=== PATIENT | female | born 1945 | race Caucasian/White ===

== ENCOUNTER 2018-02-27 12:09 | Emergency (ER) | payer MEDICARE, MEDICAID ==
[2018-02-27] MEDS: methylPREDNISolone Sodium Succinate 125 MG/2 ML SDV IVPUSH ONE (12:53)
[2018-02-27] MEDS: Furosemide 40 MG/4 ML VIAL IVPUSH ONE (12:53)
[2018-02-27] MEDS: Albuterol/Ipratropium 3.0-0.5 MG/3 ML Neb Soln NEB ONE (12:53)
[2018-02-27] MEDS: Sodium Chloride 0.9% 10 ML Syringe FLUSH PRN (12:53)
[2018-02-27 13:05] LABS: CHLORIDE,CL 106 mmol/L (98-107); SODIUM,NA 142 mmol/L (136-145)
--- NOTE | 2018-02-27 14:06 | EDM.PDOC ---
ED HPI GENERAL MEDICAL PROBLEM - General Chief Complaint: Respiratory Problem Stated Complaint: shortness of breath Time Seen by Provider: 02/27/18 12:21 Source of Information: Reports: Patient, Family History Limitations: Reports: No Limitations - History of Present Illness INITIAL COMMENTS - FREE TEXT/NARRATIVE: Patient comes complaining of COPD exacerbation. Would like to get a steroid shot and go home. Has had similar symptoms multiple times in the past and they usually resolve if given a steroid. Has had increasing SOB for several days. Noted increased swelling of lower legs earlier this week but this improved. No fevers/chills or recent colds/infections. Has history of chronic pain, including neck pain. They neck pain is a bit worse today. Denies chest pain. Has some radiated pain down right arm. This is not new. Multiple chronic medical conditions/poor sleep. No med changes reported. O2 dependent. Quit smoking a year ago. - Related Data Allergies Allergy/AdvReac Type Severity Reaction Status Date / Time gabapentin [From Neurontin] Allergy Rash Verified 10/23/16 15:47 Penicillins Allergy unknown Verified 04/08/15 16:37 Home Meds: Home Meds Albuterol/Ipratropium [DuoNeb 3.0-0.5 MG/3 ML] 3 ml INH Q4H PRN 04/08/15 [ History] Enalapril Maleate 20 mg PO DAILY 04/08/15 [History] LORazepam [Ativan] 1 mg PO BID PRN 04/08/15 [History] Naproxen [Naprosyn] 1 tab PO BID PRN 04/08/15 [History] Omeprazole [Prilosec] 20 mg PO DAILY 04/08/15 [History] Zinc Acetate [Galzin] 1 tab PO DAILY 04/08/15 [History] buPROPion [Wellbutrin XL] 150 mg PO DAILY #30 tab.er 04/12/15 [Rx] Escitalopram [Lexapro] 20 mg PO DAILY 10/23/16 [History] QUEtiapine [SEROquel] 50 mg PO BEDTIME 10/23/16 [History] Acetaminophen/HYDROcodone [[place] 325-5 MG] 1 tab PO Q6H PRN #0 tablet 10/27/16 [ Rx] Albuterol [IJD: Albuterol HFA] 0 gm INH Q4H PRN #2 inhaler 10/27/16 [Rx] Ascorbic Acid [Vitamin C] 500 mg PO DAILY tablet 10/27/16 [Rx] Mometasone/Formoterol [[place] 200-5 MCG] 2 puff IH BID 90 Days inhaler [Rx] Multivitamins [Tab-A-Kianna] 1 tab PO DAILY tablet 10/27/16 [Rx] predniSONE [Prednisone] 10 mg PO DAILY #45 tablet 10/27/16 [Rx] Hydrocodone/Acetaminophen [Hydrocodon-Acetaminophen 5-325] 1 each PO Q4HR PRN [History] Nitrofurantoin Monohyd/M-Cryst [Macrobid 100 mg Capsule] 100 mg PO BID #14 capsule 02/27/18 [Rx] atorvaSTATin [Lipitor] 20 mg PO DAILY 02/27/18 [History] Past Medical History HEENT History: Reports: Allergic Rhinitis Cardiovascular History: Reports: High Cholesterol, Hypertension Other Cardiovascular History: tachycardia Respiratory History: Reports: COPD, Other (See Below) Other Respiratory History: acute and chronic respiratory failure Gastrointestinal History: Reports: GERD Musculoskeletal History: Reports: Other (See Below) Other Musculoskeletal History: spondylothesis Psychiatric History: Reports: Depression Endocrine/Metabolic History: Reports: Obesity/BMI 30+ - Past Surgical History Neurological Surgical History: Reports: Spinal Fusion Musculoskeletal Surgical History: Reports: Other (See Below) Social & Family History - Tobacco Use Smoking Status *Q: Current Every Day Smoker Years of Tobacco use: 46 Used Tobacco, but Quit: No Second Hand Smoke Exposure: Yes - Recreational Drug Use Recreational Drug Use: No ED ROS GENERAL - Review of Systems Review Of Systems: See Below Constitutional: Denies: Fever, Chills, Malaise, Weakness, Night Sweats, Diaphoresis, Decreased Appetite, Weight Loss HEENT: Reports: No Symptoms Respiratory: Reports: Shortness of Breath, Wheezing. Denies: Pleuritic Chest Pain, Cough, Sputum, Hemoptysis Cardiovascular: Reports: Edema. Denies: Chest Pain, Lightheadedness, Palpitations GI/Abdominal: Reports: No Symptoms : Reports: No Symptoms Musculoskeletal: Reports: Neck Pain (chronic), Arm Pain Skin: Reports: Bruising Neurological: Reports: No Symptoms Psychiatric: Reports: No Symptoms Hematologic/Lymphatic: Reports: Easy Bruising ED EXAM, GENERAL - Physical Exam Exam: See Below Exam Limited By: No Limitations General Appearance: Alert, WD/WN, No Apparent Distress (audible wheezing), Obese Eye Exam: Bilateral Eye: EOMI, PERRL Ears: Normal External Exam Nose: No: Nasal Deformity, Nasal Swelling, Nasal Drainage Throat/Mouth: Normal Inspection, Normal Lips, Normal Voice, No Airway Compromise Head: Atraumatic, Normocephalic Neck: Normal Inspection, Supple, Non-Tender, Full Range of Motion Respiratory/Chest: No Respiratory Distress, No Accessory Muscle Use, Decreased Breath Sounds (bilateral), Rhonchi (scattered), Wheezing (throughout). No: Crackles, Rales, Stridor, Pleural Rub, Accessory Muscle Use, Retractions, Splinting Cardiovascular: Regular Rate, Rhythm, No Murmur Peripheral Pulses: 2+: Radial (L), Radial (R), Dorsalis Pedis (L), Dorsalis Pedis (R) GI/Abdominal: Soft, Non-Tender (Female) Exam: Deferred Rectal (Female) Exam: Deferred Back Exam: No: CVA Tenderness (L), CVA Tenderness (R), Muscle Spasm, Paraspinal Tenderness, Vertebral Tenderness Extremities: Normal Range of Motion, Non-Tender, Normal Capillary Refill, Pedal Edema (mild, bilateral). No: Pallor, Redness Neurological: Alert, Oriented, Normal Cognition, Normal Reflexes, No Motor/ Sensory Deficits, Other (ambulates well) Psychiatric: Normal Affect, Normal Mood Skin Exam: Warm, Intact, Normal Color EKG INTERPRETATION EKG Date: 02/27/18 Time: 12:16 Rhythm: Other (Sinus tach) Rate (Beats/Min): 103 [place]: Normal P-Wave: Present QRS: Normal ST-T: Normal QT: Normal TX/PQ Interval: TX decreased to 90ms Comparison: Change From Previous EKG (last EKG was NSR) Course - Vital Signs Last Recorded V/S: Last Vital Signs Temp 36.6 C 02/27/18 12:15 Pulse 98 02/27/18 15:30 Resp 24 H 02/27/18 15:30 BP 145/79 H 02/27/18 15:30 Pulse Ox 97 02/27/18 15:30 - Orders/Labs/Meds Orders: Active Orders 24 hr Category Date Time Status EKG Documentation Completion [RC] ASDIRECTED Care 02/27/18 12:23 Active Chest 2V [CR] Stat Exams 02/27/18 12:23 Taken PE Chest [Ang Chest] [CT] Stat Exams 02/27/18 13:26 Taken CULTURE URINE [RM] Routine Lab 02/27/18 13:20 Received UA W/MICROSCOPIC [URIN] Stat Lab 02/27/18 13:20 Ordered Sodium Chloride 0.9% [Saline Flush] Med 02/27/18 12:22 Active 10 ml FLUSH ASDIRECTED PRN Saline Lock Insert [OM.PC] Stat Oth 02/27/18 12:23 Ordered Medication Orders Sodium Chloride (Saline Flush) 10 ml FLUSH ASDIRECTED PRN PRN Reason: Keep Vein Open Last Admin: 02/27/18 12:53 Dose: 10 ml Labs: Laboratory Tests 02/27/18 02/27/18 02/27/18 Range/Units 12:30 12:30 12:30 WBC 13.2 H (4.0-10.2) K/uL RBC 3.02 L (3.77-5.09) M/uL Hgb 9.6 L (11.7-15.5) g/dL Hct 30.5 L (34.0-46.0) % MCV 101.0 H D (84.0-98.0) fL MCH 31.8 (28.2-33.3) pg MCHC 31.5 L (31.7-36.0) g/dL RDW 14.4 H (11.2-14.1) % Plt Count 300 (150-350) K/uL Neut % (Auto) 78.8 (45.0-80.0) % Lymph % (Auto) 8.3 L (10.0-50.0) % [place] % (Auto) 5.5 (2.0-14.0) % Eos % (Auto) 7.2 H (0.0-5.0) % Baso % (Auto) 0.2 (0.0-2.0) % Neut # (Auto) 10.38 H (1.40-7.00) K/uL Lymph # (Auto) 1.10 (0.50-3.50) K/uL [place] # (Auto) 0.73 (0.00-1.00) K/uL Eos # (Auto) 0.95 H (0.00-0.50) K/uL Baso # (Auto) 0.03 (0.00-0.20) K/uL D-Dimer, Quantitative 417 H (0-400) ng/mL Sodium 142 (136-145) mmol/L Potassium 4.4 (3.5-5.1) mmol/L Chloride 106 (98-107) mmol/L Carbon Dioxide 27.2 (21.0-32.0) mmol/L BUN 18 (7-18) mg/dL Creatinine 0.91 (0.51-1.17) mg/dL Est Cr Clr Drug Dosing TNP Estimated GFR (MDRD) > 60 mL/min Glucose 108 H (74-106) mg/dL Calcium 8.5 (8.5-10.1) mg/dL Magnesium (1.8-2.4) mg/dL Total Bilirubin 0.3 (0.2-1.0) mg/dL AST 26 (15-37) U/L ALT 28 (12-78) U/L Alkaline Phosphatase 77 (46-116) IU/L Creatine Kinase 284 (26-308) U/L Creatine Kinase Index 3.8 H (0.0-2.5) % CK-MB (CK-2) 10.90 H* (0.00-3.60) ng/mL Troponin I 0.001 (0.000-0.056) ng/mL C-Reactive Protein (<=0.9) mg/dL NT-Pro-B Natriuret Pep 670 H (0-125) pg/mL Total Protein 7.2 (6.4-8.2) g/dL Albumin 3.5 (3.4-5.0) g/dL Vitamin B12 (193-986) pg/mL Specimen Type Urine Color Urine Appearance Urine pH (5.0-9.0) Ur Specific [place] (1.005-1.030) Urine Protein (NEGATIVE) mg/dL Urine Glucose (UA) (NEGATIVE) mg/dL Urine Ketones (NEGATIVE) mg/dL Urine Occult Blood (NEGATIVE) Urine Nitrite (NEGATIVE) Urine Bilirubin (NEGATIVE) Urine Urobilinogen (0.2-1.0) E.U./dL Ur Leukocyte Esterase (NEGATIVE) Urine RBC /HPF Urine WBC /HPF Ur Epithelial Cells /LPF Urine Bacteria (NONE TO FEW) /HPF 02/27/18 02/27/18 Range/Units 12:30 13:20 WBC (4.0-10.2) K/uL RBC (3.77-5.09) M/uL Hgb (11.7-15.5) g/dL Hct (34.0-46.0) % MCV (84.0-98.0) fL MCH (28.2-33.3) pg MCHC (31.7-36.0) g/dL RDW (11.2-14.1) % Plt Count (150-350) K/uL Neut % (Auto) (45.0-80.0) % Lymph % (Auto) (10.0-50.0) % [place] % (Auto) (2.0-14.0) % Eos % (Auto) (0.0-5.0) % Baso % (Auto) (0.0-2.0) % Neut # (Auto) (1.40-7.00) K/uL Lymph # (Auto) (0.50-3.50) K/uL [place] # (Auto) (0.00-1.00) K/uL Eos # (Auto) (0.00-0.50) K/uL Baso # (Auto) (0.00-0.20) K/uL D-Dimer, Quantitative (0-400) ng/mL Sodium (136-145) mmol/L Potassium (3.5-5.1) mmol/L Chloride (98-107) mmol/L Carbon Dioxide (21.0-32.0) mmol/L BUN (7-18) mg/dL Creatinine (0.51-1.17) mg/dL Est Cr Clr Drug Dosing Estimated GFR (MDRD) mL/min Glucose (74-106) mg/dL Calcium (8.5-10.1) mg/dL Magnesium 1.9 (1.8-2.4) mg/dL Total Bilirubin (0.2-1.0) mg/dL AST (15-37) U/L ALT (12-78) U/L Alkaline Phosphatase (46-116) IU/L Creatine Kinase (26-308) U/L Creatine Kinase Index (0.0-2.5) % CK-MB (CK-2) (0.00-3.60) ng/mL Troponin I (0.000-0.056) ng/mL C-Reactive Protein 4.8 H (<=0.9) mg/dL NT-Pro-B Natriuret Pep (0-125) pg/mL Total Protein (6.4-8.2) g/dL Albumin (3.4-5.0) g/dL Vitamin B12 1361 H (193-986) pg/mL Specimen Type Urin[place]ad Urine Color Yellow Urine Appearance Clear Urine pH 7.0 (5.0-9.0) Ur Specific [place] 1.020 (1.005-1.030) Urine Protein Negative (NEGATIVE) mg/dL Urine Glucose (UA) Negative (NEGATIVE) mg/dL Urine Ketones Negative (NEGATIVE) mg/dL Urine Occult Blood Negative (NEGATIVE) Urine Nitrite Negative (NEGATIVE) Urine Bilirubin Negative (NEGATIVE) Urine Urobilinogen 0.2 (0.2-1.0) E.U./dL Ur Leukocyte Esterase Small H (NEGATIVE) Urine RBC 0-5 /HPF Urine WBC 10-20 H /HPF Ur Epithelial Cells Moderate H /LPF Urine Bacteria Few (NONE TO FEW) /HPF Meds: Medications Generic Name Dose Route Start Last Admin Trade Name Freq PRN Reason Stop Dose Admin Sodium Chloride 10 ml 02/27/18 12:22 02/27/18 12:53 Saline Flush FLUSH 10 ml ASDIRECTED PRN Administration Keep Vein Open Discontinued Medications Generic Name Dose Route Start Last Admin Trade Name Freq PRN Reason Stop Dose Admin Albuterol/Ipratropium 3 ml 02/27/18 12:24 02/27/18 12:53 Duoneb 3.0-0.5 Mg/3 Ml NEB 02/27/18 12:25 3 ml ONETIME ONE Administration Furosemide 20 mg 02/27/18 12:37 02/27/18 12:53 Lasix IVPUSH 02/27/18 12:38 20 mg NOW ONE Administration Iopamidol 100 ml 02/27/18 13:51 02/27/18 14:31 Isovue-370 (76%) IVPUSH 02/27/18 13:52 100 ml ONETIME ONE Administration Methylprednisolone Sodium Succinate 125 mg 02/27/18 12:35 02/27/18 12:53 Solu-Medrol IVPUSH 02/27/18 12:36 125 mg ONETIME ONE Administration - Radiology Interpretation Free Text/Narrative:: Chest xray showed essentially no changes when compared to previous films. Continues to show COPD/fibrosis/atelectasis. No infiltrates suggestive of pneumonia, no pneumothorax. CT Results Date: 02/27/18 CT Results Time: 15:15 (Radiology notes significant changes from previous CTs/ enlarged nodes and other changes that most likely represent cancer-related changes. ) - Re-Assessments/Exams Free Text/Narrative Re-Assessment/Exam: 02/27/18 14:12 WBC elevated. CKMB elevated but Troponin normal. BNP elevated. DDimer just above upper normal limits. Anemic. UA showed small amount of WBCs. Culture requested. Discussed DDimer as flag test from possible presence of PEs. Patient and daughter elected to have CT scan to rule out possibility of PE involvement. Solumedrol/Duoneb/Lasix given. Patient monitored while resting. No new complaints. Vital signs stable. Free Text/Narrative Re-Assessment/Exam: 02/27/18 16:[address] discussed with patient and her daughter. Patient would like to go home. Feels much improved. BP and pulse rate has improved. Wheezing has resolved/significant improvement when auscultated. Will have patient follow up in clinic either tomorrow or Wednesday. She is to be rechecked at that time and steroids can be continued if indicated. Will start Macrobid BID to cover for UTI while UC is pending. Will need referral to surgery for biopsy of lymph nodes/masses noted in lungs by Radiology. Patient recalls that they saw three small spots in lung in the past, one spot noted in earlier CT, and she was being observed at intervals. Patient has history of anemia but level is lower today. That will also need additional workup. Recommended serial stool samples for occult blood. May be related to current lung issues. No history of dark stools/blood in stools. Departure - Departure Time of Disposition: 16:12 Disposition: Home, Self-Care 01 Condition: Good Clinical Impression: COPD with acute exacerbation CHF (congestive heart failure) Qualifiers: Heart failure type: unspecified Heart failure chronicity: unspecified Qualified Code(s): I50.9 - Heart failure, unspecified UTI (urinary tract infection) Qualifiers: Urinary tract infection type: site unspecified Hematuria presence: without hematuria Qualified Code(s): N39.0 - Urinary tract infection, site not specified Anemia Qualifiers: Anemia type: unspecified type Qualified Code(s): D64.9 - Anemia, unspecified - Discharge Information Prescriptions: Nitrofurantoin Monohyd/M-Cryst [Macrobid 100 mg Capsule] 100 mg PO BID #14 capsule Referrals: Poonam Scherer PA [Primary Care Provider] - Forms: ED Department Discharge Additional Instructions: Follow up tomorrow with [facility] [place] for [place]he[place] and to coordinate lung biopsy in [place]. You may need to have further increased in steroid treatment depending on how your breathing feels tomorrow. It is OK to take 40mg of Prednisone instead of your usual 10mg if you feel more short of breath vs usual amount. You did have a small amount of white cells in your urine. We sent this for culture to see if any bacteria are grown and identified. In meantime we will have you take Macrobid twice a day for one week to treat for possible UTI. Stool for occult blood series recommended given worsening anemia. Follow up otherwise as needed if you have any more problems. - My Orders Last 24 Hours: My Active Orders 02/27/18 12:22 Sodium Chloride 0.9% [Saline Flush] 10 ml FLUSH ASDIRECTED PRN 02/27/18 12:23 EKG Documentation Completion [RC] ASDIRECTED Chest 2V [CR] Stat Saline Lock Insert [OM.PC] Stat 02/27/18 13:20 CULTURE URINE [RM] Routine UA W/MICROSCOPIC [URIN] Stat 02/27/18 13:26 PE Chest [Ang Chest] [CT] Stat - Assessment/Plan Last 24 Hours: My Active Orders 02/27/18 12:22 Sodium Chloride 0.9% [Saline Flush] 10 ml FLUSH ASDIRECTED PRN 02/27/18 12:23 EKG Documentation Completion [RC] ASDIRECTED Chest 2V [CR] Stat Saline Lock Insert [OM.PC] Stat 02/27/18 13:20 CULTURE URINE [RM] Routine UA W/MICROSCOPIC [URIN] Stat 02/27/18 13:26 PE Chest [Ang Chest] [CT] Stat
[2018-02-27] MEDS: Iopamidol 755 Mg/ML 100 ML Bottle IVPUSH ONE (14:31)
[2018-02-27 15:31] VITALS: BP 145/79
== END 2018-02-27 16:30 | disposition home or self-care (01) ==
LOC: LL.ED 12:09
DX: I11.0 Hypertensive heart disease with heart failure (principal); I50.9 Heart failure, unspecified; J44.1 Chronic obstructive pulmonary disease with (acute) exacerbation; D64.9 Anemia, unspecified; N39.0 Urinary tract infection, site not specified; E78.00 Pure hypercholesterolemia, unspecified; F17.210 Nicotine dependence, cigarettes, uncomplicated; Z88.8 Allergy status to other drugs, medicaments and biological substances; Z88.0 Allergy status to penicillin; Z79.899 Other long term (current) drug therapy
CPT/HCPCS: 36415; 71046; 71275; 80053; 81001; 82550; 82553; 82607; 83735; 83880; 84484; 85025; 85379; 86140; 87086; 93005; 96374; 96375; 99285; J1940; J2930; J7050; Q9967

== ENCOUNTER 2018-03-24 18:45 | Emergency (ER) | payer MEDICARE, MEDICAID ==
--- NOTE | 2018-03-24 19:01 | EDM.PDOC ---
ED HPI GENERAL MEDICAL PROBLEM - General Chief Complaint: General Stated Complaint: right shoulder pain/arm Time Seen by Provider: 03/24/18 19:00 Source of Information: Reports: Patient, Family (Daughter), Old Records ([facility] chart/EMR) History Limitations: Reports: No Limitations - History of Present Illness INITIAL COMMENTS - FREE TEXT/NARRATIVE: The patient was brought to the emergency room via private automobile by her daughter for evaluation of mild exacerbation of her chronic bilateral shoulder pain currently right greater than left with no recent history of fall, injury, etc. Her symptoms have been present for more than one week. Patient's prednisone was increased to 10 mg about one week ago after initiation of 2 antibiotics for nonspecific bronchitis. Symptoms are refractory to her hydrocodone with the patient also taking 1000 mg of Tylenol at about 14:00 hours this afternoon. The patient denies any chest pain/pressure, heart flutter , dizziness, orthostasis, orthopnea, diaphoresis, paresthesias, recent decreased exercise tolerance, or any other anginal-type symptoms. No recent history of abdominal pain, heartburn, nausea, diarrhea, melena, gross hematochezia, or any food intolerance, including fatty foods, etc.. The patient also denies any recent fever, cough, wheezing, dyspnea, etc.. Onset: Gradual Duration: Week(s): (As above), Getting Worse Location: Reports: Upper Extremity, Left, Upper Extremity, Right. Denies: Head , Face, Neck, Chest, Abdomen, Back, Lower Extremity, Left, Lower Extremity, Right, Radiates to Quality: Reports: Ache, Same as Previous Episode, Throbbing Severity: Severe Improves with: Reports: Rest Worsens with: Reports: Movement Context: Reports: Other (As above) Associated Symptoms: Denies: Confusion, Chest Pain, Cough, Diaphoresis, Fever/ Chills, Headaches, Loss of Appetite, Malaise, Nausea/Vomiting, Shortness of Breath, Weakness Treatments SPOOL FIXER: Reports: Acetaminophen, Other Medication(s) (As above) right shoulder/arm pain Pain Score (Numeric/FACES): 8 Left Shoulder Pain Score (Numeric/FACES): 6 - Related Data Allergies Allergy/AdvReac Type Severity Reaction Status Date / Time gabapentin [From Neurontin] Allergy Rash Verified 03/24/18 18:56 Penicillins Allergy unknown Verified 03/24/18 18:56 Home Meds: Home Meds Albuterol/Ipratropium [DuoNeb 3.0-0.5 MG/3 ML] 3 ml INH Q4H PRN 04/08/15 [ History] Enalapril Maleate 20 mg PO DAILY 04/08/15 [History] LORazepam [Ativan] 1 mg PO BID PRN 04/08/15 [History] Naproxen [Naprosyn] 1 tab PO BID PRN 04/08/15 [History] Omeprazole [Prilosec] 20 mg PO DAILY 04/08/15 [History] Zinc Acetate [Galzin] 1 tab PO DAILY 04/08/15 [History] buPROPion [Wellbutrin XL] 150 mg PO DAILY #30 tab.er 04/12/15 [Rx] Escitalopram [Lexapro] 20 mg PO DAILY 10/23/16 [History] QUEtiapine [SEROquel] 50 mg PO BEDTIME 10/23/16 [History] Albuterol [IJD: Albuterol HFA] 0 gm INH Q4H PRN #2 inhaler 10/27/16 [Rx] Ascorbic Acid [Vitamin C] 500 mg PO DAILY tablet 10/27/16 [Rx] Mometasone/Formoterol [Dulera 200-5 MCG] 2 puff IH BID 90 Days inhaler [Rx] Multivitamins [Tab-A-Kianna] 1 tab PO DAILY tablet 10/27/16 [Rx] predniSONE [Prednisone] 10 mg PO DAILY #45 tablet 10/27/16 [Rx] atorvaSTATin [Lipitor] 20 mg PO DAILY 02/27/18 [History] Acetaminophen 1,000 mg PO BID 03/24/18 [History] Acetaminophen/HYDROcodone [Hood 325-5 MG] 2 tab PO BID PRN 03/24/18 [History] Budesonide/Formoterol Fumarate [Symbicort 160-4.5 Mcg Inhaler] 1 puff IH DAILY 03/24/18 [History] Roflumilast [Daliresp] 500 mcg PO DAILY 03/24/18 [History] predniSONE 10 mg PO DAILY 03/24/18 [History] tiZANidine HCl [Tizanidine HCl] 2 mg PO TID 03/24/18 [History] Past Medical History HEENT History: Reports: Allergic Rhinitis, Impaired Vision, Other (See Below) Other HEENT History: Patient wears glasses Cardiovascular History: Reports: Arrhythmia, High Cholesterol, Hypertension Other Cardiovascular History: Short NH interval. Recurrent tachycardia. PACs. Respiratory History: Reports: Bronchitis, Recurrent, COPD, Intubation, Previous , Pneumonia, Recurrent, Pulmonary Fibrosis, Other (See Below). Denies: Intubation, Difficult Other Respiratory History: Recurrent acute and chronic respiratory failure with O2 and steroid-dependent COPDpulmonary fibrosis. Benign right upper lobe pulmonary nodule by CT scan in 2018 Gastrointestinal History: Reports: Diverticulosis, GERD, Other (See Below) Other Gastrointestinal History: Benign hepatic hemangioma by CT scan in 2018 [employer] History: Reports: : 4 Para: 4 LMP (Approximate): Menopausal Musculoskeletal History: Reports: Back Pain, Chronic, Neck Pain, Chronic, Other (See Below) Other Musculoskeletal History: spondylothesis. Scoliosis. Neurological History: Reports: Headaches, Chronic, MS Psychiatric History: Reports: Addiction, Anxiety, Depression, Other (See Below) Other Psychiatric History: Chronic narcotic use Endocrine/Metabolic History: Reports: Obesity/BMI 30+ Hematologic History: Reports: Anemia, Blood Transfusion(s) - Past Surgical History GI Surgical History: Reports: Appendectomy, Other (See Below) Other GI Surgeries/Procedures: Laparoscopic appendectomy on 07/24/09 Female Surgical History: Reports: Section, Tubal Ligation, Other ( See Below) Other Female Surgeries/Procedures: 3 with bilateral tubal ligation with last delivery Neurological Surgical History: Reports: C-Spine, Discectomy, Laminectomy, Spinal Fusion, Other (See Below). Denies: Lumbar Spine, Sacral Spine, Thoracic Spine, Vertebroplasty Other Neurological Surgeries/Procedures: Spinal fusion of C4-C7 and multiple discectomies on 10/06/2016. Musculoskeletal Surgical History: Reports: Other (See Below) - Past Imaging History Past Imaging History: Reports: CAT Scan (CTA of the chest on 02/27/[address] of the brain on 07/10/09 and 11/03/07.), PET (PET scan of the chest in January 2018 with results not available) Social & Family History - Family History Cardiac: Reports: CAD, TX, Other (See Below) Other Cardiac Family History: Father with coronary artery disease. Mother with fatal TX at age 80. Respiratory: Reports: COPD, Other (See Below) Other Respiratory Family Hisory: Parents with COPD Endocrine/Metabolic: Reports: Diabetes, type II, Other (See Below) Other Endocrine/Metabolic Family History: Mother and aunt with AODM. Oncologic: Reports: Prostate, Other (See Below) Other Oncologic Family History: Father with fatal prostate cancer at age 80 - Tobacco Use Smoking Status *Q: Former Smoker Tobacco Use Within Last Twelve Months: No Years of Tobacco use: 45 Packs/Tins Daily: 2 Packs/Tins Daily Comment: She smoked between ages 26 and 71. Used Tobacco, but Quit: Yes - Caffeine Use Caffeine Use: Reports: Coffee (1 pot per day) ED ROS GENERAL - Review of Systems Review Of Systems: ROS reveals no pertinent complaints other than HPI. ED EXAM, GENERAL - Physical Exam Exam: See Below General Appearance: Alert, WD/WN, No Apparent Distress, Anxious (Moderate) Head: Atraumatic, Normocephalic. No: Facial Swelling, Facial Tenderness, Sinus Tenderness Neck: Supple, Non-Tender, Full Range of Motion, Carotid Bruit (Bilateral carotid bruits). No: Lymphadenopathy (L), Lymphadenopathy (R), Thyromegaly Respiratory/Chest: No Respiratory Distress, No Accessory Muscle Use, Chest Non- Tender, Rales (Mild bilateral basilar), Rhonchi (Occasional), Wheezing ( Occasional bilateral) Cardiovascular: Normal Peripheral Pulses, No Edema, No Gallop, No JVD, No Murmur , No Rub. No: Gallop/S3, Gallop/S4, Friction Rub Peripheral Pulses: 2+: Radial (L), Radial (R) GI/Abdominal: Normal Bowel Sounds, Soft, Non-Tender, No Organomegaly, No Distention, No Abnormal Bruit, No Mass, Other (Obese). No: Guarding (Female) Exam: Deferred Rectal (Female) Exam: Deferred Back Exam: Normal Inspection, Full Range of Motion. No: CVA Tenderness (L), CVA Tenderness (R) Extremities: No Pedal Edema, Normal Capillary Refill, Limited Range of Motion ( Mild decreased range of motion in the shoulders bilaterally secondary to discomfort with mild localized palpation pain in the deltoid regions but no dislocation, crepitation, etc.), Other (Multiple ecchymosis and superficial abrasions/skin tears on her entire upper extremities bilaterally with no acute infection). No: Joint Swelling, Juan R's Sign, Redness Neurological: Alert, Oriented, CN II-XII Intact, Normal Cognition, Normal Gait, Normal Reflexes, No Motor/Sensory Deficits Psychiatric: Anxious (Moderate), Depressed Mood (Mild to moderate with adequate eye contact) Skin Exam: Ecchymosis (As above), Wound/Incision (As above). No: Petechiae Lymphatic: No Adenopathy Course - Vital Signs Last Recorded V/S: Last Vital Signs Temp 37.3 C 03/24/18 18:48 Pulse 118 H 03/24/18 19:39 Resp 22 H 03/24/18 18:48 BP 166/82 H 03/24/18 19:39 Pulse Ox 97 03/24/18 18:48 Vital Signs - 24 hr 03/24/18 03/24/18 18:48 19:39 Temperature [ 37.3 C Oral] Pulse, 114 H 118 H Peripheral [ Right Pulse Oximetry] Respiratory 22 H Rate Blood Pressure 199/86 H 166/82 H [Left Upper Arm ] O2 Sat by Pulse 97 Oximetry - Orders/Labs/Meds Orders: Active Orders 24 hr Category Date Time Status Obtain Past Medical Record [OM.PC] Routine Oth 03/24/18 19:16 Active Labs: None Meds: Medications Discontinued Medications Generic Name Dose Route Start Last Admin Trade Name Mely PRN Reason Stop Dose Admin Methylprednisolone Acetate 80 mg 03/24/18 19:18 03/24/18 19:36 Depo-Medrol IM 03/24/18 19:19 80 mg ONETIME ONE Administration - Radiology Interpretation Free Text/Narrative:: None Departure - Departure Time of Disposition: 20:10 Disposition: Home, Self-Care 01 Condition: Good Clinical Impression: Dyslipidemia, Mixed anxiety depressive disorder, Osteoarthritis Shoulder pain Qualifiers: Chronicity: acute Laterality: bilateral Qualified Code(s): M25.511 - Pain in right shoulder COPD (chronic obstructive pulmonary disease) Qualifiers: COPD type: emphysema Emphysema type: panlobular Qualified Code(s): J43.1 - Panlobular emphysema HTN (hypertension) Qualifiers: Hypertension type: essential hypertension Qualified Code(s): I10 - Essential ( primary) hypertension CHF (congestive heart failure) Qualifiers: Heart failure type: unspecified Heart failure chronicity: unspecified Qualified Code(s): I50.9 - Heart failure, unspecified - Discharge Information Referrals: Poonam Scherer PA [Primary Care Provider] - Forms: ED Department Discharge Additional Instructions: 1. Followup with your regular provider in 7-10 days as directed. 2. BenGay or equivalent, heating pad, and/or ice packs as directed. 3. Compliance with Naprosyn and Tylenol with limited use of Hood as discussed 4. Continue to observe your blood pressures closely through your regular provider 5. Decrease caffeine intake as discussed 6. Immediately after this visit verify that your cellular telephone's voicemail has been activated and is empty. Also verify that your home telephone 's answering machine is operating properly and has space to receive messages. Note that it is sometimes necessary for us to be able to contact you at a later date to discuss your medical care. - Problem List & Annotations (1) Shoulder pain SNOMED Code(s): 35672508 Code(s): M25.519 - PAIN IN UNSPECIFIED SHOULDER Status: Acute Priority: High Current Visit: Yes Annotation/Comment:: Exacerbation of her chronic bilateral shoulder pain. Compliance with her Naprosyn and Tylenol was strongly encouraged. Limit narcotic use as discussed. Symptomatic relief as per discharge instructions. IM Depo-Medrol given in the emergency room. Qualifiers: Chronicity: acute Laterality: bilateral Qualified Code(s): M25.511 - Pain in right shoulder; M25.512 - Pain in left shoulder (2) HTN (hypertension) SNOMED Code(s): 99807308 Code(s): I10 - ESSENTIAL (PRIMARY) HYPERTENSION Status: Chronic Priority : Medium Current Visit: Yes Annotation/Comment:: Blood pressure is under moderate control in the emergency room with anxiety being a secondary component. Decrease caffeine intake as discussed. Continue to observe closely through her regular provider. Qualifiers: Hypertension type: essential hypertension Qualified Code(s): I10 - Essential (primary) hypertension (3) Mixed anxiety depressive disorder SNOMED Code(s): 340570979 Code(s): F41.8 - OTHER SPECIFIED ANXIETY DISORDERS Status: Chronic Priority: Medium Current Visit: Yes Annotation/Comment:: Moderate control based on today's evaluation. Continue to observe closely by her regular provider. (4) COPD (chronic obstructive pulmonary disease) SNOMED Code(s): 61688606 Code(s): J44.9 - CHRONIC OBSTRUCTIVE PULMONARY DISEASE, UNSPECIFIED Status : Chronic Priority: Medium Current Visit: Yes Annotation/Comment:: No recent fever or significant exacerbation of her chronic bronchitis/COPD. Note recent initiation of dual antibiotic therapy and increase of her prednisone. Continue close observation by her regular provider Qualifiers: COPD type: emphysema Emphysema type: panlobular Qualified Code(s): J43.1 - Panlobular emphysema (5) CHF (congestive heart failure) SNOMED Code(s): 84653222 Code(s): I50.9 - HEART FAILURE, UNSPECIFIED Status: Chronic Priority: Medium Current Visit: Yes Annotation/Comment:: No recent chest pain or anginal type symptoms. Qualifiers: Heart failure type: unspecified Heart failure chronicity: unspecified Qualified Code(s): I50.9 - Heart failure, unspecified (6) Osteoarthritis SNOMED Code(s): 642994352 Code(s): M19.90 - UNSPECIFIED OSTEOARTHRITIS, UNSPECIFIED SITE Status: Chronic Priority: Medium Current Visit: Yes Annotation/Comment:: Otherwise stable by history Qualifiers: Osteoarthritis location: multiple joints Osteoarthritis type: primary Qualified Code(s): M15.0 - Primary generalized (osteo)arthritis - Problem List Review Problem List Initiated/Reviewed/Updated: Yes - My Orders Last 24 Hours: My Active Orders 03/24/18 19:16 Obtain Past Medical Record [OM.PC] Routine - Assessment/Plan Last 24 Hours: My Active Orders 03/24/18 19:16 Obtain Past Medical Record [OM.PC] Routine Assessment:: As above Plan: As above. Extensive precautions were given to the patient and her daughter, who are in agreement with the treatment plan. See Patient Instructions for further treatment and plan.
[2018-03-24] MEDS ORDERED: methylPREDNISolone Acetate 80 MG/ML SDV IM ONE (19:18)
[2018-03-24 19:39] VITALS: BP 166/82
== END 2018-03-24 20:10 | disposition home or self-care (01) ==
LOC: LL.ED 18:45
DX: M25.511 Pain in right shoulder (principal); J43.1 Panlobular emphysema; E78.5 Hyperlipidemia, unspecified; F41.8 Other specified anxiety disorders; M19.90 Unspecified osteoarthritis, unspecified site; I11.0 Hypertensive heart disease with heart failure; I50.9 Heart failure, unspecified; S40.021A Contusion of right upper arm, initial encounter; S40.022A Contusion of left upper arm, initial encounter; E66.9 Obesity, unspecified; Z88.0 Allergy status to penicillin; Z79.899 Other long term (current) drug therapy; Z87.891 Personal history of nicotine dependence; X58.XXXA Exposure to other specified factors, initial encounter
CPT/HCPCS: 96372; 99284; J1040

== ENCOUNTER 2019-03-24 14:09 | Inpatient (IN) | payer MEDICARE, MEDICAID ==
[2019-03-24] MEDS ORDERED: Albuterol/Ipratropium 3.0-0.5 MG/3 ML Neb Soln NEB ONE (14:11)
[2019-03-24] MEDS ORDERED: Budesonide 0.5 MG/2 ML Neb Susp NEB ONE (14:11)
--- NOTE | 2019-03-24 14:11 | EDM.PDOC ---
ED HPI GENERAL MEDICAL PROBLEM - General Chief Complaint: Chest Pain Stated Complaint: shortness of breath, chest pain Time Seen by Provider: 03/24/19 14:11 Source of Information: Reports: Patient, Family (Daughter, Diana and son, Virginia), Old Records ([facility] chart/EMR), Other ( [facility]) History Limitations: Reports: Respiratory Distress - History of Present Illness INITIAL COMMENTS - FREE TEXT/NARRATIVE: The patient was brought to the emergency room via private automobile by her son and daughter for evaluation of nonspecific left-sided chest pain, which started at about 9 AM. She is a poor historian secondary to her current sedation and respiratory distress. The patient apparently had one small episode of emesis yesterday with her temporary lumbar TENS unit removed at [facility] yesterday. She has not been taking any narcotics or NSAIDs for at least 2 weeks , including this morning per her family's history. She has been sedated since this morning has not been able to give any kind of detailed history to her family prior to arrival. The patient denies any heart flutter, dizziness, orthostasis, orthopnea, diaphoresis, paresthesias, recent decreased exercise tolerance, or any other anginal-type symptoms. No recent history of abdominal pain, heartburn, nausea, diarrhea, melena, gross hematochezia, or any food intolerance, including fatty foods, etc.. with stable constipation by family's history. Her chronic cough has apparently been stable, including yesterday evening, although increasing dyspnea since this morning. No apparent history of known exposure to infection, recent foul-smelling urine, fever, colic, UTI symptoms, etc. The patient did not take her nebulizer treatment this morning. She is unable to rate her chest pain. Note that patient did have a headache this morning likely secondary to removal of temporary lumbar TENS unit as above. Onset: Today, Gradual Onset Date: 03/24/19 Onset Time: 09:00 Duration: Constant, Getting Worse Location: Reports: Chest, Back (Chronic lumbar). Denies: Head, Face, Neck, Abdomen, Pelvis, Upper Extremity, Left, Upper Extremity, Right, Radiates to Quality: Reports: Other (Unable to describes) Severity: Moderate Improves with: Reports: None Worsens with: Reports: None Context: Reports: Other (As above). Denies: Sick Contact, Trauma Associated Symptoms: Reports: Confusion, Chest Pain, Cough, Headaches, Malaise, Nausea/Vomiting, Shortness of Breath. Denies: cough w sputum, Diaphoresis, Fever/Chills, Loss of Appetite, Seizure, Syncope, Weakness Treatments [employer]ENT: Reports: Other (see below) (None) - Related Data Allergies Allergy/AdvReac Type Severity Reaction Status Date / Time gabapentin [From Neurontin] Allergy Rash Verified 03/24/18 18:56 Penicillins Allergy unknown Verified 03/24/18 18:56 poison rashaad extract Allergy Fever Verified 03/24/19 14:11 Home Meds: Home Meds Albuterol/Ipratropium [DuoNeb 3.0-0.5 MG/3 ML] 3 ml INH Q4H PRN 04/08/15 [ History] Enalapril Maleate 20 mg PO DAILY 04/08/15 [History] LORazepam [Ativan] 1 mg PO BID PRN 04/08/15 [History] Naproxen [Naprosyn] 1 tab PO BID PRN 04/08/15 [History] Omeprazole [Prilosec] 20 mg PO DAILY 04/08/15 [History] Zinc Acetate [Galzin] 1 tab PO DAILY 04/08/15 [History] buPROPion [Wellbutrin XL] 150 mg PO DAILY #30 tab.er 04/12/15 [Rx] Escitalopram [Lexapro] 20 mg PO DAILY 10/23/16 [History] Ascorbic Acid [Vitamin C] 500 mg PO DAILY tablet 10/27/16 [Rx] Multivitamins [Tab-A-Kianna] 1 tab PO DAILY tablet 10/27/16 [Rx] predniSONE [Prednisone] 10 mg PO DAILY #45 tablet 10/27/16 [Rx] atorvaSTATin [Lipitor] 20 mg PO DAILY 02/27/18 [History] Acetaminophen 1,000 mg PO BID 03/24/18 [History] Acetaminophen/HYDROcodone [Julian 325-5 MG] 2 tab PO BID PRN 03/24/18 [History] Budesonide/Formoterol Fumarate [Symbicort 160-4.5 Mcg Inhaler] 1 puff IH DAILY 03/24/18 [History] Roflumilast [Daliresp] 500 mcg PO DAILY 03/24/18 [History] tiZANidine HCl [Tizanidine HCl] 2 mg PO TID 03/24/18 [History] ALPRAZolam [Alprazolam] 0.5 mg PO DAILY 03/24/19 [History] Albuterol [Ventolin HFA] 1 puff .XX DAILY 03/24/19 [History] Alendronate Sodium [Fosamax] 70 mg PO Q7D 03/24/19 [History] Diclofenac Sodium [Voltaren 1%] 1 applic TP QID 03/24/19 [History] Levofloxacin [Levaquin] 500 mg PO DAILY 03/24/19 [History] Naloxone HCl [Narcan] 4 mg NS DAILY PRN 03/24/19 [History] Pregabalin [Lyrica] 75 mg PO TID 03/24/19 [History] Varenicline Tartrate [Chantix] 1 mg PO BID 03/24/19 [History] traZODone HCl [Trazodone HCl] 100 mg PO DAILY 03/24/19 [History] Past Medical History HEENT History: Reports: Allergic Rhinitis, Cataract, Hard of Hearing, Impaired Vision, Other (See Below). Denies: Glaucoma, Macular Degeneration, Otitis Media , Retinal Detachment Other HEENT History: Patient wears glasses. Moderate presbycusis with current right-sided hearing aid therapy. Cardiovascular History: Reports: Arrhythmia, Heart Failure, High Cholesterol, Hypertension. Denies: Afib, Aneurysm, Blood Clots/VTE/DVT, CAD, Cardiomyopathy , Heart Murmur, SC, PVD, Syncope Other Cardiovascular History: Short HI interval. Recurrent sinus tachycardia. PACs. Dyslipidemia Respiratory History: Reports: Bronchitis, Recurrent, COPD, Intubation, Previous , Pneumonia, Recurrent, Pulmonary Fibrosis, Other (See Below). Denies: Asthma, Intubation, Difficult, PE, Pneumothorax, Sleep Apnea, TB Other Respiratory History: Recurrent acute and chronic respiratory failure with O2 and steroid-dependent COPDpulmonary fibrosis. Bilateral upper lobe pulmonary nodules. Gastrointestinal History: Reports: Cholelithiasis, Chronic Constipation, Colon Polyp, Diverticulosis, GERD, Other (See Below). Denies: Bowel Obstruction, Celiac Disease, Fecal Incontinence, Gastritis, GI Bleed, Hepatitis, Inflammatory Bowel Disease, Irritable Bowel Syndrome, Jaundice, Pancreatitis Other Gastrointestinal History: Benign hepatic hemangioma by CT scan in 2018 Genitourinary History: Reports: None. Denies: Acute Renal Failure, Chronic Renal Insuffiency, Renal Calculus, Retention, Urinary, STD, Urinary Incontinence , UTI, Recurrent DIRECTOR POST History: Reports: . Denies: Dysfunctional Uterine Bleeding, Fibroids, Spontaneous : 4 Para: 2 LMP (Approximate): Other (See Below) Other DIRECTOR POST History: Menopause about age 43. 2 at full-term with possible additional with last menses with conjoint twin and demise of conjoint twin at delivery and sister 2 days later. Full-term demise with first , No problems with gestational diabetes, preeclampsia , etc. Musculoskeletal History: Reports: Arthritis, Back Pain, Chronic, Neck Pain, Chronic, Osteoarthritis, Osteoporosis, Other (See Below). Denies: Amputation, Fracture, Gout, RA, SLE Other Musculoskeletal History: Kyphoscoliosis with spinal stenosis both in the cervical spine and lumbar spines with previous surgery as below. Neurological History: Reports: Headaches, Chronic, Migraines, Neuropathy, Peripheral, Other (See Below). Denies: Alzheimers Disease, Cerebral Aneurysms, Concussion, CVA, Head Trauma, MS, Parkinson's, Seizure, TIA, Vertigo Other Neuro History: Herpes zoster meningitis as below Psychiatric History: Reports: Addiction, Anxiety, Depression, Other (See Below) . Denies: Abuse, Victim of, ADD, ADHD, Psych Hospitalization(s), PTSD, Suicide Attempt, Suicidal Ideation Other Psychiatric History: Chronic narcotic use Endocrine/Metabolic History: Reports: Obesity/BMI 30+, Osteopenia, Osteoporosis. Denies: Diabetes, Gestational, Diabetes, Type I, Diabetes, Type II, Diabetes Mellitus, Type 3c, Hypothyroidism, IDDM Hematologic History: Reports: Anemia, Blood Transfusion(s), Other (See Below). Denies: B12 Deficiency, Iron Deficiency Other Hematologic History: Transfusion during lumbar fusion as below. Immunologic History: Reports: Immunosuppression, Other (See Below). Denies: AIDS, HIV, SLE Other Immunologic History: Chronic steroid use Oncologic (Cancer) History: Denies: Basal Cell Carcinoma, Breast, Cervix, Colon , Hodgkin's Lymphoma, Leukemia, Lymphoma, Malignant Melanoma, Non-Hodgkin's Lymphoma, Ovarian, Squamous Cell Carcinoma, Uterine Dermatologic History: Reports: None. Denies: Eczema, Psoriasis, Venous Stasis Dermatitis - Infectious Disease History Infectious Disease History: Reports: Chicken Pox, Meningitis, Shingles, Other ( See Below). 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 Denies: Adenoidectomy, Eye Surgery, Laser Surgery, LASIK, Myringotomy w Tube(s), Naso-Sinus Surgery, Tonsillectomy Other HEENT Surgeries/Procedures: Multiple teeth extractions with complete upper dentures. Bilateral cataract extraction in about 2016. Cardiovascular Surgical History: Reports: None. Denies: Varicose Respiratory Surgical History: Reports: None. Denies: Thoracentesis GI Surgical History: Reports: Appendectomy, Colonoscopy, Polypectomy, Other ( See Below). Denies: Cholecystectomy, EGD, Hernia, Abdominal, Hernia, Inguinal, Hernia Repair/Other Other GI Surgeries/Procedures: Laparoscopic appendectomy on 07/24/09. Last colonoscopy with polypectomy in her 30s. Female Surgical History: Reports: Section, Tubal Ligation, Other ( See Below). Denies: Breast Biopsy, Hysterectomy, Oophorectomy, Salpingo- Oophorectomy Other Female Surgeries/Procedures: 3 with bilateral tubal ligation with last delivery Endocrine Surgical History: Denies: Thyroid Biopsy Neurological Surgical History: Reports: C-Spine, Discectomy, Laminectomy, Spinal Fusion, Other (See Below). Denies: Lumbar Spine, Sacral Spine, Scoliosis , Thoracic Spine, Vertebroplasty Other Neurological Surgeries/Procedures: Spinal fusion of L3-S1 on 10/06/16. Musculoskeletal Surgical History: Reports: Other (See Below). Denies: Arthroscopic Procedure, Carpal Tunnel, Ganglion Cyst, Joint Replacement, ORIF, Shoulder Surgery Oncologic Surgical History: Reports: None Dermatological Surgical History: Reports: None - Past Imaging History Past Imaging History: Reports: Cardiac Echo (Suboptimal echocardiogram on with ejection fraction of 65%.), CAT Scan (CT of the chest on 04/12/19, , 09/30/17, and 10/15/16. CTA of the chest on 02/27/18 and 04/08/15. CT of the brain on 07/10/09 and 11/03/07. CT of the lumbar spine on 08/13/17.), HIDA Scan (), Mammogram (Last Mammogram on 07/07/18), MRI (MRI of the cervical spine on 04/09/17. MRI of the lumbar spine on 09/08/18 and 08/13/17), PET (PET scan of the chest in January 2018 with results not available), PFT (PFTs on 02/10/19 and 11/27/16. Overnight home O2 evaluation on 02/10/19). Denies: Angiography, Event Monitor, Holter Monitor, Stress Testing Social & Family History - Family History HEENT: Reports: Cataract, Other (See Below). Denies: Glaucoma, Macular Degeneration, Retinal Detachment Other HEENT Family History: Parents with cataracts. Cardiac: Reports: CAD, SC, Other (See Below). Denies: Afib, AICD, Arrhythmia, Bypass, Heart Failure, Heart Murmur, High Cholesterol, Hypertension, Pacemaker, Syncope Other Cardiac Family History: Father with coronary artery disease. Mother with fatal SC at age 80. Paternal uncles 2 with fatal MIs in their 80s90s. Maternal aunt with fatal SC in her 80s. Respiratory: Reports: COPD, Other (See Below). Denies: Asthma, PE, Pneumothorax , Sleep Apnea Other Respiratory Family Hisory: Parents with COPD with history of tobacco abuse GI: Reports: None. Denies: Celiac Disease, Cholelithiasis, Colon Polyps, GERD, GI bleed, Inflammatory Bowel Disease, Irritable Bowel Syndrome, PUD : Reports: None. Denies: Renal Calculus, Renal Disease/Insufficiency OBGYN: Reports: None. Denies: Endometriosis, Recurrent Spontaneous Musculoskeletal: Reports: Gout, Other (See Below). Denies: RA, SLE Other Musculoskeletal Family History: Father with hyperuricemia Neurological: Reports: Alzheimers Disease, Dementia, Migraines, Other (See Below ). Denies: CVA, MS, Parkinson's, Seizure, TIA Other Neurological Family History: Maternal aunt with migraine headaches. Maternal and paternal uncles and aunts with organic brain syndrome. Psychiatric: Reports: Anxiety, Depression, Other (See Below). Denies: Abuse, Victim of, ADD, ADHD, Psych Hospitalization(s), Psychosis, PTSD, Suicide Attempt Other Psychiatric Family History: Anxiety and depression with history of alcohol abuse in her father. Endocrine/Metabolic: Reports: Diabetes, type II, IDDM, Other (See Below). Denies: Diabetes, Type I, Hypothyroidism Other Endocrine/Metabolic Family History: Mother, maternal aunt and paternal aunt with AODM. Maternal aunt and sister with IDDM. Hematologic: Denies: Anemia, SLE Immunologic: Reports: None. Denies: AIDS, HIV, SLE Dermatologic: Reports: None. Denies: Eczema, Psoriasis Oncologic: Reports: Prostate, Other (See Below). Denies: Cervix, Colon, Hodgkin 's Lymphoma, Leukemia, Lung, Lymphoma, Non-Hodgkin's Lymphoma, Ovarian, Skin, Uterine Other Oncologic Family History: Father with fatal prostate cancer at age 80. Maternal aunt with fatal breast cancer in her 80s. - Tobacco Use Smoking Status *Q: Current Every Day Smoker Years of Tobacco use: 48 Packs/Tins Daily: 0.3 Packs/Tins Daily Comment: Started smoking at age 26 with maximum use of 2 packs per day. Used Tobacco, but Quit: No Smoking Cessation Information Provided To Patient: No Second Hand Smoke Exposure: Yes Source of Second Hand Smoke Exposure: Second Hand Smoke Education Provided: Yes - Caffeine Use Caffeine Use: Reports: Coffee (1 pot per day), Soda (1 soda every 23 days.). Denies: Energy Drinks, Tea - Alcohol Use Alcohol Use History: No Days Per Week of Alcohol Use: 0 Number of Drinks Per Day: 0 Number of Drinks Per Day Comment: No previous DWIs, problems with alcohol abuse , etc. Total Drinks Per Week: 0 Alcohol Use in Last Twelve Months: No - Recreational Drug Use Recreational Drug Use: No Drug Use in Last 12 Months: No Recreational Drug Type: Denies: Amphetamines (Speed), Cocaine, Heroin, Inhalants (Glues, Solvents, Aerosols), LSD (Acid), Marijuana/Hashish, Methamphetamine, Morphine, Oxycodone - Living Situation & Occupation Living situation: Reports: (2 Children), with Family (Daughter) Occupation: Retired (Multiple previous jobs retired at age in about 2007) ED ROS GENERAL - Review of Systems Review Of Systems: ROS reveals no pertinent complaints other than HPI. ED EXAM, GENERAL - Physical Exam Exam: See Below Exam Limited By: Respiratory Distress (And Sedation) General Appearance: Lethargic, Severe Distress Eye Exam: Left Eye: EOMI, Normal Inspection (No nystagmus. Patient wearing glasses.), PERRL Ears: Normal External Exam, Normal Canal, Normal TMs, Hearing Loss (Moderate presbycusis with patient not having her right-sided hearing aid.) Nose: Normal Inspection, Normal Mucosa, No Blood Throat/Mouth: Normal Lips, Normal Oropharynx, Normal Voice, No Airway Compromise. No: Normal Teeth (Multiple missing teeth including complete absent upper dentition with patient not having her dentures today), Dysphagia, Perioral Cyanosis Head: Atraumatic, Normocephalic. No: Facial Swelling, Facial Tenderness, Sinus Tenderness Neck: Supple, Non-Tender, Full Range of Motion, Carotid Bruit (Bilateral carotid bruitsmild). No: Lymphadenopathy (L), Lymphadenopathy (R), Thyromegaly Respiratory/Chest: Chest Non-Tender, Respiratory Distress (Severe), Rales ( Moderate diffuse bilateral), Rhonchi (Diffuse bilateralmoderate), Wheezing ( Moderate diffuse bilateral), Accessory Muscle Use, Retractions Cardiovascular: No Edema, No Gallop, No JVD, No Murmur, No Rub, Tachycardia ( Regular rhythm), Other (Exam difficult secondary to respiratory findings as above.). No: Gallop/S3, Gallop/S4, Friction Rub Peripheral Pulses: 2+: Radial (L), Radial (R), Dorsalis Pedis (L), Dorsalis Pedis (R) GI/Abdominal: Normal Bowel Sounds, Soft, Non-Tender, No Organomegaly, No Distention, No Abnormal Bruit, No Mass, Pelvis Stable, Other (Obese). No: Guarding, Tender (Female) Exam: Deferred Rectal (Female) Exam: Deferred Back Exam: Decreased Range of Motion (Chronic), Other (Dry dressing over the mid lumbar region). No: CVA Tenderness (L), CVA Tenderness (R), Muscle Spasm, Paraspinal Tenderness, Vertebral Tenderness Extremities: Normal Range of Motion, Non-Tender, No Pedal Edema, Normal Capillary Refill, Other (Moderate hallux valgus). No: Juan R's Sign Neurological: Normal Reflexes (Negative Babinski's), Confused (And sedated), Slow to Respond Psychiatric: Other (Unable to determine) Skin Exam: Warm, Normal Color, No Rash, Wound/Incision (Lumbar dressing as above ). No: Diaphoretic, Ecchymosis, Pallor, Petechiae Lymphatic: No Adenopathy EKG INTERPRETATION EKG Date: 03/24/19 Time: 14:48 Rhythm: Other (Sinus tachycardia) Rate (Beats/Min): 123 Nahma: Normal (Neutral cardiac axis) P-Wave: Enlarged (Mild diffuse biphasic P waves) QRS: Normal (0.08 seconds) ST-T: Normal QT: Normal HI/PQ Interval: 0.14 seconds with no delta waves noted. Mild poor R wave progression in the anterior leads. Comparison: NA - No Prior EKG (No recent EKG for comparison) EKG Interpretation Comments: 1. No acute ischemic changes 2. Left atrial enlargement 3. Short HI interval Course - Vital Signs Last Recorded V/S: Last Vital Signs Temp 37.6 C 03/24/19 15:23 Pulse 101 H 03/24/19 16:24 Resp 30 H 03/24/19 16:09 BP 149/58 H 03/24/19 16:09 Pulse Ox 90 L 03/24/19 16:09 Vital Signs - 24 hr 03/24/19 03/24/19 03/24/19 14:09 14:12 14:15 Temperature [ 37.4 C Oral] Pulse, Peripheral Pulse, 170 H Peripheral [ Right Pulse Oximetry] Respiratory 36 H Rate Blood Pressure Blood Pressure 168/73 H [Right Upper Arm] O2 Sat by Pulse 85 L Oximetry O2 Sat by Pulse 78 L 98 Oximetry [ Nasal Cannula] 03/24/19 03/24/19 03/24/19 14:19 14:27 14:34 Temperature [ Oral] Pulse, 171 H Peripheral Pulse, 126 H 131 H Peripheral [ Right Pulse Oximetry] Respiratory 34 H 34 H Rate Blood Pressure 168/73 H Blood Pressure 164/67 H 164/67 H [Right Upper Arm] O2 Sat by Pulse 98 97 Oximetry O2 Sat by Pulse Oximetry [ Nasal Cannula] 03/24/19 03/24/19 03/24/19 14:47 14:57 15:12 Temperature [ Oral] Pulse, 133 H Peripheral Pulse, 118 H 120 H Peripheral [ Right Pulse Oximetry] Respiratory 31 H 34 H Rate Blood Pressure 141/71 H Blood Pressure 123/64 135/62 [Right Upper Arm] O2 Sat by Pulse 92 L 93 L Oximetry O2 Sat by Pulse Oximetry [ Nasal Cannula] 03/24/19 03/24/19 03/24/19 15:23 15:32 15:47 Temperature [ 37.6 C Oral] Pulse, Peripheral Pulse, 134 H 93 100 Peripheral [ Right Pulse Oximetry] Respiratory 32 H 35 H 29 H Rate Blood Pressure Blood Pressure 141/71 H 125/38 L 125/64 [Right Upper Arm] O2 Sat by Pulse 93 L 95 93 L Oximetry O2 Sat by Pulse Oximetry [ Nasal Cannula] 03/24/19 03/24/19 16:09 16:24 Temperature [ Oral] Pulse, Peripheral Pulse, 100 101 H Peripheral [ Right Pulse Oximetry] Respiratory 30 H Rate Blood Pressure Blood Pressure 149/58 H [Right Upper Arm] O2 Sat by Pulse 90 L Oximetry O2 Sat by Pulse Oximetry [ Nasal Cannula] - Orders/Labs/Meds Orders: Active Orders 24 hr Category Date Time Status Cardiac Monitoring [RC] . DIRECTED Care 03/24/19 14:12 Active EKG Documentation Completion [RC] ASDIRECTED Care 03/24/19 14:12 Active Oxygen Therapy, ED [RC] CONTINUOUS Care 03/24/19 14:12 Active Peripheral IV Care [RC] . DIRECTED Care 03/24/19 14:12 Active Pulse Oximetry [RC] CONTINUOUS Care 03/24/19 14:12 Active RT Aerosol Therapy [RC] ASDIRECTED Care 03/24/19 14:11 Active RT Aerosol Therapy [RC] ASDIRECTED Care 03/24/19 16:02 Active Up With Assistance [RC] PFP Care 03/24/19 14:12 Active Vital Signs [RC] PFP Care 03/24/19 14:12 Active Nothing per Oral Now Diet [DIET] Diet 03/24/19 Breakfast Active Chest 1V Frontal [CR] Stat Exams 03/24/19 14:12 Taken Chest PE [Ang Chest] [CT] Stat Exams 03/24/19 14:52 Taken CULTURE BLOOD [BC] Stat Lab 03/24/19 14:12 Received CULTURE BLOOD [BC] Stat Lab 03/24/19 14:38 Received CULTURE SPUTUM + SMEAR [RM] Routine Lab 03/24/19 16:45 Received CULTURE URINE [RM] Routine Lab 03/24/19 16:05 Received Sodium Chloride 0.9% [Saline Flush] Med 03/24/19 14:12 Active 10 ml FLUSH ASDIRECTED PRN Blood Culture x2 Reflex Set [OM.PC] Urgent Oth 03/24/19 14:34 Ordered Obtain Past Medical Record [OM.PC] Urgent Oth 03/24/19 14:12 Active Peripheral IV Insertion Adult [OM.PC] Stat Ot 03/24/19 14:12 Ordered Resuscitation Status Stat Resus Stat 03/24/19 14:12 Ordered Medication Orders Sodium Chloride (Saline Flush) 10 ml FLUSH ASDIRECTED PRN PRN Reason: Keep Vein Open Labs: Laboratory Tests 03/24/19 03/24/19 03/24/19 Range/Units 14:12 14:12 14:12 WBC 22.3 H (4.0-10.2) K/uL RBC 3.99 (3.77-5.09) M/uL Hgb 13.3 D (11.7-15.5) g/dL Hct 40.5 (34.0-46.0) % MCV 101.5 H (84.0-98.0) fL MCH 33.3 (28.2-33.3) pg MCHC 32.8 (31.7-36.0) g/dL RDW 13.2 (11.2-14.1) % Plt Count 268 (150-350) K/uL Neut % (Auto) 87.7 H (45.0-80.0) % Lymph % (Auto) 5.4 L (10.0-50.0) % [place] % (Auto) 6.6 (2.0-14.0) % Eos % (Auto) 0.2 (0.0-5.0) % Baso % (Auto) 0.1 (0.0-2.0) % Neut # (Auto) 19.56 H (1.40-7.00) K/uL Lymph # (Auto) 1.20 (0.50-3.50) K/uL [place] # (Auto) 1.47 H (0.00-1.00) K/uL Eos # (Auto) 0.04 (0.00-0.50) K/uL Baso # (Auto) 0.03 (0.00-0.20) K/uL PT 10.2 (9.5-12.0) SEC INR 0.9 APTT 29.1 (21.0-31.3) SEC D-Dimer, Quantitative 440 H (0-400) ng/mL Sodium (136-145) mmol/L Potassium (3.5-5.1) mmol/L Chloride (98-107) mmol/L Carbon Dioxide (21.0-32.0) mmol/L BUN (7-18) mg/dL Creatinine (0.51-1.17) mg/dL Est Cr Clr Drug Dosing Estimated GFR (MDRD) mL/min Glucose (74-106) mg/dL Lactic Acid (0.4-2.0) mmol/L Uric Acid (2.6-7.2) mg/dL Calcium (8.5-10.1) mg/dL Magnesium (1.8-2.4) mg/dL Total Bilirubin (0.2-1.0) mg/dL AST (15-37) U/L ALT (12-78) U/L Alkaline Phosphatase (46-116) IU/L Creatine Kinase (26-308) U/L Creatine Kinase Index (0.0-2.5) % CK-MB (CK-2) (0.00-3.60) ng/mL Troponin I (0.000-0.056) ng/mL NT-Pro-B Natriuret Pep (0-125) pg/mL Total Protein (6.4-8.2) g/dL Albumin (3.4-5.0) g/dL TSH, Ultra Sensitive (0.358-3.740) mIU/mL Specimen Type Urine Color Urine Appearance Urine pH (5.0-9.0) Ur Specific [place] (1.005-1.030) Urine Protein (NEGATIVE) mg/dL Urine Glucose (UA) (NEGATIVE) mg/dL Urine Ketones (NEGATIVE) mg/dL Urine Occult Blood (NEGATIVE) Urine Nitrite (NEGATIVE) Urine Bilirubin (NEGATIVE) Urine Urobilinogen (0.2-1.0) E.U./dL Ur Leukocyte Esterase (NEGATIVE) Urine RBC /HPF Urine WBC /HPF Ur Epithelial Cells /LPF Urine Bacteria (NONE TO FEW) /HPF 03/24/19 03/24/19 03/24/19 Range/Units 14:12 14:12 16:05 WBC (4.0-10.2) K/uL RBC (3.77-5.09) M/uL Hgb (11.7-15.5) g/dL Hct (34.0-46.0) % MCV (84.0-98.0) fL MCH (28.2-33.3) pg MCHC (31.7-36.0) g/dL RDW (11.2-14.1) % Plt Count (150-350) K/uL Neut % (Auto) (45.0-80.0) % Lymph % (Auto) (10.0-50.0) % [place] % (Auto) (2.0-14.0) % Eos % (Auto) (0.0-5.0) % Baso % (Auto) (0.0-2.0) % Neut # (Auto) (1.40-7.00) K/uL Lymph # (Auto) (0.50-3.50) K/uL [place] # (Auto) (0.00-1.00) K/uL Eos # (Auto) (0.00-0.50) K/uL Baso # (Auto) (0.00-0.20) K/uL PT (9.5-12.0) SEC INR APTT (21.0-31.3) SEC D-Dimer, Quantitative (0-400) ng/mL Sodium 138 (136-145) mmol/L Potassium 5.1 (3.5-5.1) mmol/L Chloride 98 (98-107) mmol/L Carbon Dioxide 32.2 H (21.0-32.0) mmol/L BUN 13 (7-18) mg/dL Creatinine 0.81 (0.51-1.17) mg/dL Est Cr Clr Drug Dosing TNP Estimated GFR (MDRD) > 60 mL/min Glucose 145 H (74-106) mg/dL Lactic Acid 0.9 (0.4-2.0) mmol/L Uric Acid 5.0 (2.6-7.2) mg/dL Calcium 9.0 (8.5-10.1) mg/dL Magnesium 2.1 (1.8-2.4) mg/dL Total Bilirubin 0.3 (0.2-1.0) mg/dL AST 33 (15-37) U/L ALT 24 (12-78) U/L Alkaline Phosphatase 189 H (46-116) IU/L Creatine Kinase 495 H (26-308) U/L Creatine Kinase Index 2.8 H (0.0-2.5) % CK-MB (CK-2) 14.00 H* (0.00-3.60) ng/mL Troponin I 0.054 (0.000-0.056) ng/mL NT-Pro-B Natriuret Pep 415 H (0-125) pg/mL Total Protein 7.8 (6.4-8.2) g/dL Albumin 3.8 (3.4-5.0) g/dL TSH, Ultra Sensitive 1.289 (0.358-3.740) mIU/mL Specimen Type Urincc Urine Color Yellow Urine Appearance Clear Urine pH 7.0 (5.0-9.0) Ur Specific [place] 1.020 (1.005-1.030) Urine Protein 30 H (NEGATIVE) mg/dL Urine Glucose (UA) Negative (NEGATIVE) mg/dL Urine Ketones 15 H (NEGATIVE) mg/dL Urine Occult Blood Trace-intact H (NEGATIVE) Urine Nitrite Negative (NEGATIVE) Urine Bilirubin Negative (NEGATIVE) Urine Urobilinogen 0.2 (0.2-1.0) E.U./dL Ur Leukocyte Esterase Negative (NEGATIVE) Urine RBC 0-5 /HPF Urine WBC 0-5 /HPF Ur Epithelial Cells Few /LPF Urine Bacteria Few (NONE TO FEW) /HPF Meds: Medications Generic Name Dose Route Start Last Admin Trade Name Freq PRN Reason Stop Dose Admin Sodium Chloride 10 ml 03/24/19 14:12 Saline Flush FLUSH ASDIRECTED PRN Keep Vein Open Discontinued Medications Generic Name Dose Route Start Last Admin Trade Name Freq PRN Reason Stop Dose Admin Albuterol 2.5 mg 03/24/19 16:02 03/24/19 16:30 Proventil Neb Soln INH 03/24/19 16:03 2.5 mg ONETIME ONE Administration Albuterol/Ipratropium 3 ml 03/24/19 14:11 03/24/19 14:20 Duoneb 3.0-0.5 Mg/3 Ml NEB 03/24/19 14:12 3 ml ONETIME ONE Administration Aspirin 324 mg 03/24/19 14:12 03/24/19 14:19 Aspirin CHEW 03/24/19 14:13 324 mg ONETIME ONE Administration Budesonide 0.5 mg 03/24/19 14:11 03/24/19 14:20 Pulmicort NEB 03/24/19 14:12 0.5 mg ONETIME ONE Administration Diltiazem HCl 20 mg 03/24/19 15:11 03/24/19 15:18 Diltiazem IVPUSH 03/24/19 15:12 20 mg ONETIME ONE Administration Famotidine 40 mg 03/24/19 14:12 03/24/19 14:19 Pepcid IVPUSH 03/24/19 14:13 40 mg ONETIME ONE Administration Furosemide 60 mg 03/24/19 14:16 03/24/19 14:19 Lasix IVPUSH 03/24/19 14:17 60 mg NOW ONE Administration Levofloxacin/Dextrose 500 mg/ 100 mls @ 100 mls/hr 03/24/19 15:52 03/24/19 15 :58 Premix IV 03/24/19 16:51 100 mls/hr ONETIME ONE Administration Iopamidol 100 ml 03/24/19 14:59 03/24/19 15:33 Isovue-370 (76%) IVPUSH 03/24/19 15:00 100 ml ONETIME ONE Administration Metoprolol Tartrate 2.5 mg 03/24/19 14:12 03/24/19 14:19 Lopressor IVPUSH 03/24/19 14:13 2.5 mg ONETIME ONE Administration Metoprolol Tartrate 2.5 mg 03/24/19 14:39 03/24/19 14:47 Lopressor IVPUSH 03/24/19 14:40 2.5 mg ONETIME ONE Administration Naloxone HCl 2 mg 03/24/19 14:39 03/24/19 14:45 Narcan IVPUSH 03/24/19 14:40 2 mg ONETIME ONE Administration Ticagrelor 180 mg 03/24/19 14:12 03/24/19 14:20 Brilinta PO 03/24/19 14:13 180 mg ONETIME ONE Administration - Radiology Interpretation Free Text/Narrative:: Arctic monitor showed initial severe tachycardia in the 140s with sinus tachycardia in the 170s with nebulizer treatment. Note subsequent intermittent breakthrough sinus tachycardia in the 150s after therapy as above with additional occasional PACs and PVCs. After completion of medical therapy as above heart rate in the 90s to 100s with improved arrhythmia. Chest x-ray, portable, shows evidence of mild cardiomegaly with mild mostly centralized CHF and/or pulmonary hypertension with moderate COPD and pulmonary fibrotic changes. Telephone consultation at 16:25 hours with the radiology department at [facility] with preliminary verbal report of CTA of the chest using PE protocol. No evidence of DVT with stable CT findings since last CT of the chest on 02/10/19. CT Results Date: 03/24/19 CT Results Time: 16:25 Departure - Departure Time of Disposition: 16:54 Disposition: Admitted As Inpatient 67 Clinical Impression: Mixed anxiety depressive disorder, Dyslipidemia, Tobacco abuse counseling, PVCs (premature ventricular contractions), PAC (premature atrial contraction), D -dimer, elevated COPD (chronic obstructive pulmonary disease) Qualifiers: COPD type: emphysema Emphysema type: panlobular Qualified Code(s): J43.1 - Panlobular emphysema HTN (hypertension) Qualifiers: Hypertension type: essential hypertension Qualified Code(s): I10 - Essential ( primary) hypertension Osteoarthritis Qualifiers: Osteoarthritis location: multiple joints Osteoarthritis type: primary Qualified Code(s): M15.0 - Primary generalized (osteo)arthritis CHF (congestive heart failure) Qualifiers: Heart failure type: unspecified Heart failure chronicity: unspecified Qualified Code(s): I50.9 - Heart failure, unspecified Pneumonia Qualifiers: Pneumonia type: due to unspecified organism Laterality: bilateral Lung location : unspecified part of lung Qualified Code(s): J18.9 - Pneumonia, unspecified organism - Problem List & Annotations (1) CHF (congestive heart failure) SNOMED Code(s): 97744785 Code(s): I50.9 - HEART FAILURE, UNSPECIFIED Status: Chronic Priority: Medium Current Visit: No Annotation/Comment:: Nonspecific chest pain-type symptoms with chest pain protocol initiated immediately upon patient's arrival to the emergency room. Note no significant EKG changes indicative of an acute SC with mildly elevated BNP and centralized CHF by chest x-ray consistent with clinical exam. 60 mg IV Lasix given in the emergency room with additional IV Lopressor 2 and additional IV Cardizem required secondary to her sinus tachycardia and additional PACs and PVCs. Troponin I is high normal with significantly elevated CK and CK-MB, however only borderline elevated CK index. Chest pain resolved with aggressive therapy as above. Various therapeutic options were discussed with the patient and her family. Patient was chest pain- free at time of admission, however persistent headache. Per the request the patient will be admitted to this facility on telemetry in acute care with standard rule out SC orders. Prognosis guarded secondary to heart failure, respiratory distress, pneumonia, etc. Qualifiers: Heart failure type: unspecified Heart failure chronicity: unspecified Qualified Code(s): I50.9 - Heart failure, unspecified (2) COPD (chronic obstructive pulmonary disease) SNOMED Code(s): 63346499 Code(s): J44.9 - CHRONIC OBSTRUCTIVE PULMONARY DISEASE, UNSPECIFIED Status : Chronic Priority: Medium Current Visit: No Annotation/Comment:: Note known O2 and steroid-dependent COPD and pulmonary fibrosis with current home oxygen requirement of 2 L/m by nasal cannula on a continuous basis. Significant respiratory distress on patient's arrival requiring aggressive therapy, including triple nebulizer treatment and increase of her O2 initially to 4 L/m by nasal cannula. She was successfully tapered back down to her 2 L/m by nasal cannula regimen after the above therapy. Note O2 sats of only 78% on 2 L/m by nasal cannula on arrival improvement to 88% after initial increase to 4 L and 98 % after aggressive nebulizer therapy as above. Note is history of recurrent respiratory failure with severe respiratory distress on arrival as above. Qualifiers: COPD type: emphysema Emphysema type: panlobular Qualified Code(s): J43.1 - Panlobular emphysema (3) D-dimer, elevated SNOMED Code(s): 135783472 Code(s): R79.89 - OTHER SPECIFIED ABNORMAL FINDINGS OF BLOOD CHEMISTRY Status: Acute Priority: High Current Visit: No Onset Date: 03/24/19 Annotation/Comment:: Note CTA of the chest results as above. (4) Dyslipidemia SNOMED Code(s): 031597107 Code(s): E78.5 - HYPERLIPIDEMIA, UNSPECIFIED Status: Chronic Priority: Medium Current Visit: Yes Annotation/Comment:: Lipid panel and glycosylated hemoglobin in the a.m. (5) PAC (premature atrial contraction) SNOMED Code(s): 371417040 Code(s): I49.1 - ATRIAL PREMATURE DEPOLARIZATION Status: Acute Priority: High Current Visit: No Onset Date: 03/24/19 Annotation/Comment:: Newly diagnosed. Patient did respond well to IV diltiazem and Lopressor therapy. (6) PVCs (premature ventricular contractions) SNOMED Code(s): 00778751 Code(s): I49.3 - VENTRICULAR PREMATURE DEPOLARIZATION Status: Acute Priority: High Current Visit: No Onset Date: 03/24/19 Annotation/Comment: : As above (7) Pneumonia SNOMED Code(s): 973857817 Code(s): J18.9 - PNEUMONIA, UNSPECIFIED ORGANISM Status: Acute Priority: High Current Visit: No Onset Date: 03/24/19 Annotation/Comment:: No evidence of significant pneumonia by chest x-ray although note significant leukocytosis and mild fever. She is on chronic prednisone therapy and also significant respiratory distress, which could explain her leukocytosis. Blood cultures 2 were collected. Urine specimen also sent for culture and sensitivity. IV Levaquin started in the emergency room with continuation during hospitalization with additional oral Bactrim DS to be started later this afternoon. Qualifiers: Pneumonia type: due to unspecified organism Laterality: bilateral Lung location: unspecified part of lung Qualified Code(s): J18.9 - Pneumonia, unspecified organism (8) Tobacco abuse counseling SNOMED Code(s): 878809782, 954755952, 002754551 Code(s): Z71.6 - TOBACCO ABUSE COUNSELING Status: Chronic Priority: Medium Current Visit: No Annotation/Comment:: Tobacco cessation once again strongly encouraged. Tobacco cessation information to be provided at discharge (9) HTN (hypertension) SNOMED Code(s): 95601582 Code(s): I10 - ESSENTIAL (PRIMARY) HYPERTENSION Status: Chronic Priority : Medium Current Visit: No Annotation/Comment:: Blood pressures under good control in the emergency room with aggressive medical treatment required for her arrhythmia, respiratory failure, etc. as above. Decreased caffeine intake is advisable and was discussed. Qualifiers: Hypertension type: essential hypertension Qualified Code(s): I10 - Essential (primary) hypertension (10) Mixed anxiety depressive disorder SNOMED Code(s): 966004726 Code(s): F41.8 - OTHER SPECIFIED ANXIETY DISORDERS Status: Chronic Priority: Medium Current Visit: No Annotation/Comment:: Stable by history. Continue to observe closely by her regular provider. (11) Osteoarthritis SNOMED Code(s): 903158344 Code(s): M19.90 - UNSPECIFIED OSTEOARTHRITIS, UNSPECIFIED SITE Status: Chronic Priority: Medium Current Visit: No Annotation/Comment:: Note recent temporary lumbar TENS unit removed yesterday with planned permanent procedure on 04/05/19 by family's history. Qualifiers: Osteoarthritis location: multiple joints Osteoarthritis type: primary Qualified Code(s): M15.0 - Primary generalized (osteo)arthritis - Problem List Review Problem List Initiated/Reviewed/Updated: Yes - My Orders Last 24 Hours: My Active Orders 03/24/19 14:11 RT Aerosol Therapy [RC] ASDIRECTED 03/24/19 14:12 Cardiac Monitoring [RC] . DIRECTED EKG Documentation Completion [RC] ASDIRECTED Oxygen Therapy, ED [RC] CONTINUOUS Peripheral IV Care [RC] . DIRECTED Pulse Oximetry [RC] CONTINUOUS Up With Assistance [RC] PFP Vital Signs [RC] PFP Chest 1V Frontal [CR] Stat CULTURE BLOOD [BC] Stat Sodium Chloride 0.9% [Saline Flush] 10 ml FLUSH ASDIRECTED PRN Obtain Past Medical Record [OM.PC] Urgent Peripheral IV Insertion Adult [OM.PC] Stat Resuscitation Status Stat 03/24/19 14:34 Blood Culture x2 Reflex Set [OM.PC] Urgent 03/24/19 14:38 CULTURE BLOOD [BC] Stat 03/24/19 14:52 Chest PE [Ang Chest] [CT] Stat 03/24/19 16:02 RT Aerosol Therapy [RC] ASDIRECTED 03/24/19 16:05 CULTURE URINE [RM] Routine 03/24/19 16:45 CULTURE SPUTUM + SMEAR [RM] Routine 03/24/19 Breakfast Nothing per Oral Now Diet [DIET] - Assessment/Plan Admission H&P: Please use this note as an admission H&P Last 24 Hours: My Active Orders 03/24/19 14:11 RT Aerosol Therapy [RC] ASDIRECTED 03/24/19 14:12 Cardiac Monitoring [RC] . DIRECTED EKG Documentation Completion [RC] ASDIRECTED Oxygen Therapy, ED [RC] CONTINUOUS Peripheral IV Care [RC] . DIRECTED Pulse Oximetry [RC] CONTINUOUS Up With Assistance [RC] PFP Vital Signs [RC] PFP Chest 1V Frontal [CR] Stat CULTURE BLOOD [BC] Stat Sodium Chloride 0.9% [Saline Flush] 10 ml FLUSH ASDIRECTED PRN Obtain Past Medical Record [OM.PC] Urgent Peripheral IV Insertion Adult [OM.PC] Stat Resuscitation Status Stat 03/24/19 14:34 Blood Culture x2 Reflex Set [OM.PC] Urgent 03/24/19 14:38 CULTURE BLOOD [BC] Stat 03/24/19 14:52 Chest PE [Ang Chest] [CT] Stat 03/24/19 16:02 RT Aerosol Therapy [RC] ASDIRECTED 03/24/19 16:05 CULTURE URINE [RM] Routine 03/24/19 16:45 CULTURE SPUTUM + SMEAR [RM] Routine 03/24/19 Breakfast Nothing per Oral Now Diet [DIET] Assessment:: As above Plan: As above. Extensive precautions were given to the patient and her family, who are in agreement with the treatment plan. Denita hargrove physician assumes her care in the a.m. with [facility] assuming care on 03/27. The patient will require about 3 -4 days of inpatient/acute care secondary to multiple health problems as above.
[2019-03-24] MEDS ORDERED: Sodium Chloride 0.9% 10 ML Syringe FLUSH PRN ×2 (14:12→17:46)
[2019-03-24] MEDS ORDERED: Metoprolol Tartrate 5 MG/5 ML SDV IVPUSH ONE ×2 (14:12→14:39)
[2019-03-24] MEDS ORDERED: Famotidine 20 MG/2 ML SDV IVPUSH ONE (14:12)
[2019-03-24] MEDS ORDERED: Ticagrelor 90 MG Tab PO ONE (14:12)
[2019-03-24] MEDS ORDERED: Aspirin 81 MG Tab.Chew CHEW ONE (14:12)
[2019-03-24] MEDS ORDERED: Furosemide 40 MG/4 ML VIAL IVPUSH ONE (14:16)
[2019-03-24] MEDS ORDERED: Naloxone 2 MG/2 ML Syringe IVPUSH ONE (14:39)
[2019-03-24 14:44] LABS: CHLORIDE,CL 98 mmol/L (98-107); SODIUM,NA 138 mmol/L (136-145)
[2019-03-24] MEDS ORDERED: Iopamidol 755 Mg/ML 100 ML Bottle IVPUSH ONE (14:59)
[2019-03-24] MEDS ORDERED: Diltiazem 25 MG/5 ML SDV IVPUSH ONE ×2 (15:11→20:09)
[2019-03-24] MEDS ORDERED: Levofloxacin/Dextrose 5%-Water 500 MG in Premix Bag 1 BAG IV ONE (15:52)
[2019-03-24] MEDS ORDERED: Albuterol 0.083% 2.5 MG/3 ML Neb Soln INH ONE (16:02)
[2019-03-24] MEDS ORDERED: LORazepam 1 MG Tab PO PRN (17:23)
[2019-03-24] MEDS ORDERED: Acetaminophen 325 MG Tab PO PRN (17:46)
[2019-03-24] MEDS ORDERED: Enoxaparin 60 MG/0.6 ML Syringe SUBCUT SCH (17:49)
[2019-03-24] MEDS ORDERED: Albuterol 0.083% 2.5 MG/3 ML Neb Soln NEB PRN (17:51)
[2019-03-24] MEDS ORDERED: methylPREDNISolone Sodium Succinate 125 MG/2 ML SDV IVPUSH ONE (17:57)
[2019-03-24] MEDS ORDERED: Potassium Chloride 20 MEQ Tab.ER PO SCH (18:00)
[2019-03-24] MEDS ORDERED: tiZANidine 4 MG Tab PO SCH (18:00)
[2019-03-24] MEDS ORDERED: Dextromethorphan/guaiFENesin 600-30 MG Tab.ER PO SCH (18:00)
[2019-03-24] MEDS ORDERED: Sulfamethoxazole/Trimethoprim 800-160 MG Tab PO SCH (18:00)
[2019-03-24] MEDS ORDERED: Pregabalin 75 MG Cap PO SCH (18:00)
[2019-03-24] MEDS ORDERED: Nicotine 21 MG/24 Hr Patch TRDERM SCH (18:00)
[2019-03-24] MEDS ORDERED: Diltiazem 120 MG Cap.CD PO SCH (18:00)
[2019-03-24] MEDS ORDERED: Enoxaparin 40 MG/0.4 ML Syringe SUBCUT SCH (19:24)
[2019-03-24] MEDS ORDERED: traZODone 50 MG Tab PO SCH (20:00)
[2019-03-24] MEDS ORDERED: Albuterol/Ipratropium 3.0-0.5 MG/3 ML Neb Soln NEB SCH (20:00)
[2019-03-24] MEDS ORDERED: Furosemide 40 MG/4 ML VIAL IVPUSH SCH (21:00)
--- NOTE | 2019-03-24 21:52 | PCM.DCSUM1 ---
Discharge Summary - Hospital Course HPI Initial Comments: See emergency room note/admission H&P Brief History: See emergency room note/admission H&P Diagnosis: Stroke: No Modified [place] Scale: No Symptoms at All Modified [place] Scale Score: 0 - Discharge Data Discharge Date: 03/24/19 Discharge Disposition: DC/Tfer to Acute Hospital 02 Condition: Good - Discharge Diagnosis/Problem(s) (1) Acute [place] SNOMED Code(s): 79027473 ICD Code: I21.9 - ACUTE MYOCARDIAL INFARCTION, UNSPECIFIED Status: Acute Priority: High Current Visit: Yes Onset Date: 03/24/19 Problem Details: Second set of cardiac enzymes show progressive CK and CK-MB elevation with improved cardiac index, however now positive troponin I. Patient has been chest pain-free since admission. She did have some occasional mild sinus tachycardia in the 130s to 140 secondary to delayed administration of oral Cardizem CD therapy, however the patient did respond well to an additional 10 mg IV dose of diltiazem. No phone consultation at 21:[address] Simpson, hospitalist at [facility] in [place], who does accept the patient for direct admission, with no further treatment recommendations given. I did inform him of the patient 's 40 mg subcutaneous dose of Lovenox on admission with delay of IV heparinization for now per his recommendations. Patient is still somewhat sedated, however her daughter is in agreement with treatment plan and transfer. Likely cardiology consultation on arrival of the patient to [facility]. Ambulance transfer with radio electrician accompaniment. Note repeat EKG immediately after cardiac enzymes were received did not show any significant ischemic changes. Qualifiers: Myocardial infarction type: non-ST elevation myocardial infarction Qualified Code(s): I21.4 - Non-ST elevation (NSTEMI) myocardial infarction (2) CHF (congestive heart failure) SNOMED Code(s): 26077400 ICD Code: I50.9 - HEART FAILURE, UNSPECIFIED Status: Chronic Priority: Medium Current Visit: No Problem Details: Nonspecific chest pain-type symptoms are to arrival as per emergency room note with chest pain protocol initiated immediately upon patient's arrival to the emergency room. Note no significant EKG changes indicative of an acute WV with mildly elevated BNP and centralized CHF by chest x-ray consistent with clinical exam. 60 mg IV Lasix given in the emergency room with additional IV Lopressor 2 and additional IV Cardizem required secondary to her sinus tachycardia and additional PACs and PVCs. Troponin I is high normal with significantly elevated CK and CK-MB, however only borderline elevated CK index. Chest pain resolved with aggressive therapy as above. Various therapeutic options were discussed with the patient and her family. Patient was chest pain-free at time of admission, however persistent headache. Per their request the patient was admitted to this facility on telemetry in acute care with standard rule out W[place] orders. Prognosis guarded secondary to heart failure, respiratory distress, pneumonia, etc. Qualifiers: Heart failure type: unspecified Heart failure chronicity: unspecified Qualified Code(s): I50.9 - Heart failure, unspecified (3) COPD (chronic obstructive pulmonary disease) SNOMED Code(s): 05185129 ICD Code: J44.9 - CHRONIC OBSTRUCTIVE PULMONARY DISEASE, UNSPECIFIED Status : Chronic Priority: Medium Current Visit: No Problem Details: Note known O2 and steroid-dependent COPD and pulmonary fibrosis with current home oxygen requirement of 2 L/m by nasal cannula on a continuous basis. Significant respiratory distress on patient's arrival requiring aggressive therapy, including triple nebulizer treatment and increase of her O2 initially to 4 L/m by nasal cannula. She was successfully tapered back down to her 2 L/m by nasal cannula regimen after the above therapy. Note O2 sats of only 78% on 2 L/m by nasal cannula on arrival improvement to 88% after initial increase to 4 L and 98 % after aggressive nebulizer therapy as above. Note is history of recurrent respiratory failure with severe respiratory distress on arrival as above. Qualifiers: COPD type: emphysema Emphysema type: panlobular Qualified Code(s): J43.1 - Panlobular emphysema (4) D-dimer, elevated SNOMED Code(s): 329365094 ICD Code: R79.89 - OTHER SPECIFIED ABNORMAL FINDINGS OF BLOOD CHEMISTRY Status: Acute Priority: High Current Visit: No Onset Date: 03/24/19 Problem Details: Note negative CTA of the chest results on admission. Subcutaneous Lovenox given on admission. No Clinical evidence of DVT or PE. (5) Dyslipidemia SNOMED Code(s): 446827559 ICD Code: E78.5 - HYPERLIPIDEMIA, UNSPECIFIED Status: Chronic Priority: Medium Current Visit: Yes Problem Details: Lipid panel and glycosylated hemoglobin had been scheduled for the a.m. (6) PAC (premature atrial contraction) SNOMED Code(s): 241847324 ICD Code: I49.1 - ATRIAL PREMATURE DEPOLARIZATION Status: Acute Priority : High Current Visit: No Onset Date: 03/24/19 Problem Details: Newly diagnosed. Patient did respond well to IV diltiazem and Lopressor therapy. (7) PVCs (premature ventricular contractions) SNOMED Code(s): 28178590 ICD Code: I49.3 - VENTRICULAR PREMATURE DEPOLARIZATION Status: Acute Priority: High Current Visit: No Onset Date: 03/24/19 Problem Details: As above (8) Pneumonia SNOMED Code(s): 673215921 ICD Code: J18.9 - PNEUMONIA, UNSPECIFIED ORGANISM Status: Acute Priority : High Current Visit: No Onset Date: 03/24/19 Problem Details: No evidence of significant pneumonia by chest x-ray although note significant leukocytosis and mild fever. She is on chronic prednisone therapy and also significant respiratory distress, which could explain her leukocytosis. Blood cultures 2 were collected. Urine specimen also sent for culture and sensitivity. IV Levaquin started in the emergency room with continuation during hospitalization with additional oral Bactrim DS to be started later this afternoon. Qualifiers: Pneumonia type: due to unspecified organism Laterality: bilateral Lung location: unspecified part of lung Qualified Code(s): J18.9 - Pneumonia, unspecified organism (9) Tobacco abuse counseling SNOMED Code(s): 837715918, 636481391, 688640597 ICD Code: Z71.6 - TOBACCO ABUSE COUNSELING Status: Chronic Priority: Medium Current Visit: No Problem Details: Tobacco cessation once again strongly encouraged. Tobacco cessation information should be provided at discharge from accepting facility. (10) HTN (hypertension) SNOMED Code(s): 91577987 ICD Code: I10 - ESSENTIAL (PRIMARY) HYPERTENSION Status: Chronic Priority : Medium Current Visit: No Problem Details: Blood pressures under good control in the emergency room and during this hospitalization with aggressive medical treatment required for her arrhythmia, respiratory failure, etc. in the emergency room. Decreased caffeine intake is advisable and was discussed with the patient and her family in the emergency room. Qualifiers: Hypertension type: essential hypertension Qualified Code(s): I10 - Essential (primary) hypertension (11) Mixed anxiety depressive disorder SNOMED Code(s): 469271886 ICD Code: F41.8 - OTHER SPECIFIED ANXIETY DISORDERS Status: Chronic Priority: Medium Current Visit: No Problem Details: Stable by history. Continue to observe closely by her regular provider. (12) Osteoarthritis SNOMED Code(s): 480396013 ICD Code: M19.90 - UNSPECIFIED OSTEOARTHRITIS, UNSPECIFIED SITE Status: Chronic Priority: Medium Current Visit: No Problem Details: Note recent temporary lumbar TENS unit removed yesterday with planned permanent procedure on 04/05/19 by family's history. Qualifiers: Osteoarthritis location: multiple joints Osteoarthritis type: primary Qualified Code(s): M15.0 - Primary generalized (osteo)arthritis - Patient Summary/Data Operative Procedure(s) Performed: None Complications: None Consults: Hospitalist as above Labs Pending at D/C: 1. Blood cultures 2 2. Urine culture and sensitivity Recommended Follow-up Testing/Procedures: Not applicable Planned Operative Procedure(s) after DC: Possible heart catheterization with cardiology consultation Hospital Course: Patient was admitted to inpatient/acute care on telemetry with aggressive therapy required in the emergency room secondary to her acute respiratory failure. Routine rule out W[place] orders indicate an acute [place]V with patient stable at time of transfer. She was also chest pain free at that time. She has been nothing by mouth during this entire hospitalization. Prognosis guarded as above - Patient Instructions Diet: NPO Activity: Bedrest Driving: Do Not Drive - Discharge Plan *PRESCRIPTION DRUG MONITORING PROGRAM REVIEWED*: Not Applicable *COPY OF PRESCRIPTION DRUG MONITORING REPORT IN PATIENT SHIVANI: Not Applicable Home Medications: Home Meds Albuterol/Ipratropium [DuoNeb 3.0-0.5 MG/3 ML] 3 ml INH Q4H PRN 04/08/15 [ History] Enalapril Maleate 20 mg PO DAILY 04/08/15 [History] LORazepam [Ativan] 1 mg PO BID PRN 04/08/15 [History] Naproxen [Naprosyn] 1 tab PO BID PRN 04/08/15 [History] Omeprazole [Prilosec] 20 mg PO DAILY 04/08/15 [History] Zinc Acetate [Galzin] 1 tab PO DAILY 04/08/15 [History] buPROPion [Wellbutrin XL] 150 mg PO DAILY #30 tab.er 04/12/15 [Rx] Escitalopram [Lexapro] 20 mg PO DAILY 10/23/16 [History] Ascorbic Acid [Vitamin C] 500 mg PO DAILY tablet 10/27/16 [Rx] Multivitamins [Tab-A-Kianna] 1 tab PO DAILY tablet 10/27/16 [Rx] predniSONE [Prednisone] 10 mg PO DAILY #45 tablet 10/27/16 [Rx] atorvaSTATin [Lipitor] 20 mg PO DAILY 02/27/18 [History] Acetaminophen 1,000 mg PO BID 03/24/18 [History] Acetaminophen/HYDROcodone [[place] 325-5 MG] 2 tab PO BID PRN 03/24/18 [History] Budesonide/Formoterol Fumarate [Symbicort 160-4.5 Mcg Inhaler] 1 puff IH DAILY 03/24/18 [History] Roflumilast [Daliresp] 500 mcg PO DAILY 03/24/18 [History] tiZANidine HCl [Tizanidine HCl] 2 mg PO TID 03/24/18 [History] ALPRAZolam [Alprazolam] 0.5 mg PO DAILY 03/24/19 [History] Albuterol [Ventolin HFA] 1 puff .XX DAILY 03/24/19 [History] Alendronate Sodium [Fosamax] 70 mg PO Q7D 03/24/19 [History] Diclofenac Sodium [Voltaren 1%] 1 applic TP QID 03/24/19 [History] Levofloxacin [Levaquin] 500 mg PO DAILY 03/24/19 [History] Naloxone HCl [Narcan] 4 mg NS DAILY PRN 03/24/19 [History] Pregabalin [Lyrica] 75 mg PO TID 03/24/19 [History] Varenicline Tartrate [Chantix] 1 mg PO BID 03/24/19 [History] traZODone HCl [Trazodone HCl] 100 mg PO DAILY 03/24/19 [History] Oxygen Therapy Mode: Nasal Cannula Oxygen Flow Rate (L/min): 2 Forms: ED Department Discharge, Interfacility Transfer EMTALA Referrals: Poonam Scherer PA [Primary Care Provider] - - Discharge Summary/Plan Comment DC Time >30 min.: Yes (Coordination of care ) Discharge Summary/Plan Comment: Ambulance transfer with radio electrician accompaniment - General Info Date of Service: 03/24/19 Admission Dx/Problem (Free Text: 1. Respiratory failure 2. COPD with pneumonia 3. CHF 4. Chest pain Functional Status: Reports: Pain Controlled, Urinating. Denies: Tolerating Diet (Nothing by mouth ), Ambulating, New Symptoms, Incentive Spirometry Numeric/FACES Score: 8 - Review of Systems General: Reports: Weakness, Fatigue, Malaise. Denies: Fever, Chills, Night Sweats, Appetite HEENT: Reports: Headaches. Denies: Ear Pain, Eye Pain, Post Nasal Drip, Sinus Congestion, Sore Throat Pulmonary: Reports: Shortness of Breath, Cough, Wheezing. Denies: Sputum, Hemoptysis Cardiovascular: Reports: Chest Pain, Palpitations, Dyspnea on Exertion. Denies : Orthopnea, PND, Edema, Lightheadedness Gastrointestinal: Reports: No Symptoms. Denies: Abdominal Pain, Constipation, Decreased Appetite, Diarrhea, Difficulty Swallowing, Hematochezia, Melena, Nausea, Vomiting Genitourinary: Reports: No Symptoms Musculoskeletal: Reports: No Symptoms. Denies: Neck Pain, Shoulder Pain, Arm Pain, Back Pain, Leg Pain Skin: Reports: No Symptoms. Denies: Cyanosis, Diaphoresis Neurological: Reports: Confusion, Headache, Difficulty Walking, Weakness. Denies: Dizziness, Numbness, Paresthesia, Tingling Psychiatric: Reports: Confusion. Denies: Depression, Anxiety, Agitation, Cravings, Hallucinations - Patient Data Vitals - Most Recent: Last Vital Signs Temp 37.4 C 03/24/19 17:47 Pulse 130 H 03/24/19 19:18 Resp 30 H 03/24/19 17:47 BP 142/52 H 03/24/19 19:18 Pulse Ox 93 L 03/24/19 17:47 Vital Signs - 24 hr 03/24/19 03/24/19 03/24/19 14:09 14:12 14:15 Temperature [ 37.4 C Oral] Temperature [ Temporal] Pulse, Peripheral Pulse, 170 H Peripheral [ Right Pulse Oximetry] Respiratory 36 H Rate Blood Pressure Blood Pressure 168/73 H [Right Upper Arm] O2 Sat by Pulse 85 L Oximetry O2 Sat by Pulse 78 L 98 Oximetry [ Nasal Cannula] 03/24/19 03/24/19 03/24/19 14:19 14:27 14:34 Temperature [ Oral] Temperature [ Temporal] Pulse, 171 H Peripheral Pulse, 126 H 131 H Peripheral [ Right Pulse Oximetry] Respiratory 34 H 34 H Rate Blood Pressure 168/73 H Blood Pressure 164/67 H 164/67 H [Right Upper Arm] O2 Sat by Pulse 98 97 Oximetry O2 Sat by Pulse Oximetry [ Nasal Cannula] 03/24/19 03/24/19 03/24/19 14:47 14:57 15:12 Temperature [ Oral] Temperature [ Temporal] Pulse, 133 H Peripheral Pulse, 118 H 120 H Peripheral [ Right Pulse Oximetry] Respiratory 31 H 34 H Rate Blood Pressure 141/71 H Blood Pressure 123/64 135/62 [Right Upper Arm] O2 Sat by Pulse 92 L 93 L Oximetry O2 Sat by Pulse Oximetry [ Nasal Cannula] 03/24/19 03/24/19 03/24/19 15:23 15:32 15:47 Temperature [ 37.6 C Oral] Temperature [ Temporal] Pulse, Peripheral Pulse, 134 H 93 100 Peripheral [ Right Pulse Oximetry] Respiratory 32 H 35 H 29 H Rate Blood Pressure Blood Pressure 141/71 H 125/38 L 125/64 [Right Upper Arm] O2 Sat by Pulse 93 L 95 93 L Oximetry O2 Sat by Pulse Oximetry [ Nasal Cannula] 03/24/19 03/24/19 03/24/19 16:09 16:24 17:47 Temperature [ 37.4 C Oral] Temperature [ Temporal] Pulse, Peripheral Pulse, 100 101 H 108 H Peripheral [ Right Pulse Oximetry] Respiratory 30 H 30 H Rate Blood Pressure Blood Pressure 149/58 H 145/52 H [Right Upper Arm] O2 Sat by Pulse 90 L 93 L Oximetry O2 Sat by Pulse 93 L Oximetry [ Nasal Cannula] 03/24/19 03/24/19 19:18 19:47 Temperature [ Oral] Temperature [ 37.1 C Temporal] Pulse, 130 H Peripheral Pulse, 99 Peripheral [ Right Pulse Oximetry] Respiratory Rate Blood Pressure 142/52 H Blood Pressure 113/62 [Right Upper Arm] O2 Sat by Pulse 90 L Oximetry O2 Sat by Pulse Oximetry [ Nasal Cannula] Weight - Most Recent: 65.771 kg I&O - Last 24 hours: Intake & Output 03/24/19 03/24/19 03/24/19 06:59 14:59 22:59 Intake Total 200 Balance 200 Imaging Impressions - Last 24 hrs: [employer] shows normal sinus rhythm in the 80s to 90s prior to transfer with previous intermittent episodes of mild sinus tachycardia in the 130s to 140s with no return of his ectopy or other arrhythmia. Chest x-ray, portable, shows evidence of mild cardiomegaly with mild mostly centralized CHF and/or pulmonary hypertension with moderate COPD and pulmonary fibrotic changes. Telephone consultation at 16:25 hours with the radiology department at [facility] with preliminary verbal report of CTA of the chest using PE protocol. No evidence of DVT with stable CT findings since last CT of the chest on 02/10/19. Lab Results - Last 24 hrs: Laboratory Results - last 24 hr 03/24/19 03/24/19 03/24/19 Range/Units 14:12 14:12 14:12 WBC 22.3 H (4.0-10.2) K/uL RBC 3.99 (3.77-5.09) M/uL Hgb 13.3 D (11.7-15.5) g/dL Hct 40.5 (34.0-46.0) % MCV 101.5 H (84.0-98.0) fL MCH 33.3 (28.2-33.3) pg MCHC 32.8 (31.7-36.0) g/dL RDW 13.2 (11.2-14.1) % Plt Count 268 (150-350) K/uL Neut % (Auto) 87.7 H (45.0-80.0) % Lymph % (Auto) 5.4 L (10.0-50.0) % [place] % (Auto) 6.6 (2.0-14.0) % Eos % (Auto) 0.2 (0.0-5.0) % Baso % (Auto) 0.1 (0.0-2.0) % Neut # (Auto) 19.56 H (1.40-7.00) K/uL Lymph # (Auto) 1.20 (0.50-3.50) K/uL [place] # (Auto) 1.47 H (0.00-1.00) K/uL Eos # (Auto) 0.04 (0.00-0.50) K/uL Baso # (Auto) 0.03 (0.00-0.20) K/uL PT 10.2 (9.5-12.0) SEC INR 0.9 APTT 29.1 (21.0-31.3) SEC D-Dimer, Quantitative 440 H (0-400) ng/mL Sodium (136-145) mmol/L Potassium (3.5-5.1) mmol/L Chloride (98-107) mmol/L Carbon Dioxide (21.0-32.0) mmol/L BUN (7-18) mg/dL Creatinine (0.51-1.17) mg/dL Est Cr Clr Drug Dosing Estimated GFR (MDRD) mL/min Glucose (74-106) mg/dL Lactic Acid (0.4-2.0) mmol/L Uric Acid (2.6-7.2) mg/dL Calcium (8.5-10.1) mg/dL Magnesium (1.8-2.4) mg/dL Total Bilirubin (0.2-1.0) mg/dL AST (15-37) U/L ALT (12-78) U/L Alkaline Phosphatase (46-116) IU/L Creatine Kinase (26-308) U/L Creatine Kinase Index (0.0-2.5) % CK-MB (CK-2) (0.00-3.60) ng/mL Troponin I (0.000-0.056) ng/mL NT-Pro-B Natriuret Pep (0-125) pg/mL Total Protein (6.4-8.2) g/dL Albumin (3.4-5.0) g/dL TSH, Ultra Sensitive (0.358-3.740) mIU/mL Specimen Type Urine Color Urine Appearance Urine pH (5.0-9.0) Ur Specific [place] (1.005-1.030) Urine Protein (NEGATIVE) mg/dL Urine Glucose (UA) (NEGATIVE) mg/dL Urine Ketones (NEGATIVE) mg/dL Urine Occult Blood (NEGATIVE) Urine Nitrite (NEGATIVE) Urine Bilirubin (NEGATIVE) Urine Urobilinogen (0.2-1.0) E.U./dL Ur Leukocyte Esterase (NEGATIVE) Urine RBC /HPF Urine WBC /HPF Ur Epithelial Cells /LPF Urine Bacteria (NONE TO FEW) /HPF 03/24/19 03/24/19 03/24/19 Range/Units 14:12 14:12 16:05 WBC (4.0-10.2) K/uL RBC (3.77-5.09) M/uL Hgb (11.7-15.5) g/dL Hct (34.0-46.0) % MCV (84.0-98.0) fL MCH (28.2-33.3) pg MCHC (31.7-36.0) g/dL RDW (11.2-14.1) % Plt Count (150-350) K/uL Neut % (Auto) (45.0-80.0) % Lymph % (Auto) (10.0-50.0) % [place] % (Auto) (2.0-14.0) % Eos % (Auto) (0.0-5.0) % Baso % (Auto) (0.0-2.0) % Neut # (Auto) (1.40-7.00) K/uL Lymph # (Auto) (0.50-3.50) K/uL [place] # (Auto) (0.00-1.00) K/uL Eos # (Auto) (0.00-0.50) K/uL Baso # (Auto) (0.00-0.20) K/uL PT (9.5-12.0) SEC INR APTT (21.0-31.3) SEC D-Dimer, Quantitative (0-400) ng/mL Sodium 138 (136-145) mmol/L Potassium 5.1 (3.5-5.1) mmol/L Chloride 98 (98-107) mmol/L Carbon Dioxide 32.2 H (21.0-32.0) mmol/L BUN 13 (7-18) mg/dL Creatinine 0.81 (0.51-1.17) mg/dL Est Cr Clr Drug Dosing TNP Estimated GFR (MDRD) > 60 mL/min Glucose 145 H (74-106) mg/dL Lactic Acid 0.9 (0.4-2.0) mmol/L Uric Acid 5.0 (2.6-7.2) mg/dL Calcium 9.0 (8.5-10.1) mg/dL Magnesium 2.1 (1.8-2.4) mg/dL Total Bilirubin 0.3 (0.2-1.0) mg/dL AST 33 (15-37) U/L ALT 24 (12-78) U/L Alkaline Phosphatase 189 H (46-116) IU/L Creatine Kinase 495 H (26-308) U/L Creatine Kinase Index 2.8 H (0.0-2.5) % CK-MB (CK-2) 14.00 H* (0.00-3.60) ng/mL Troponin I 0.054 (0.000-0.056) ng/mL NT-Pro-B Natriuret Pep 415 H (0-125) pg/mL Total Protein 7.8 (6.4-8.2) g/dL Albumin 3.8 (3.4-5.0) g/dL TSH, Ultra Sensitive 1.289 (0.358-3.740) mIU/mL Specimen Type Urincc Urine Color Yellow Urine Appearance Clear Urine pH 7.0 (5.0-9.0) Ur Specific [place] 1.020 (1.005-1.030) Urine Protein 30 H (NEGATIVE) mg/dL Urine Glucose (UA) Negative (NEGATIVE) mg/dL Urine Ketones 15 H (NEGATIVE) mg/dL Urine Occult Blood Trace-intact H (NEGATIVE) Urine Nitrite Negative (NEGATIVE) Urine Bilirubin Negative (NEGATIVE) Urine Urobilinogen 0.2 (0.2-1.0) E.U./dL Ur Leukocyte Esterase Negative (NEGATIVE) Urine RBC 0-5 /HPF Urine WBC 0-5 /HPF Ur Epithelial Cells Few /LPF Urine Bacteria Few (NONE TO FEW) /HPF 03/24/19 Range/Units 20:37 WBC (4.0-10.2) K/uL RBC (3.77-5.09) M/uL Hgb (11.7-15.5) g/dL Hct (34.0-46.0) % MCV (84.0-98.0) fL MCH (28.2-33.3) pg MCHC (31.7-36.0) g/dL RDW (11.2-14.1) % Plt Count (150-350) K/uL Neut % (Auto) (45.0-80.0) % Lymph % (Auto) (10.0-50.0) % [place] % (Auto) (2.0-14.0) % Eos % (Auto) (0.0-5.0) % Baso % (Auto) (0.0-2.0) % Neut # (Auto) (1.40-7.00) K/uL Lymph # (Auto) (0.50-3.50) K/uL [place] # (Auto) (0.00-1.00) K/uL Eos # (Auto) (0.00-0.50) K/uL Baso # (Auto) (0.00-0.20) K/uL PT (9.5-12.0) SEC INR APTT (21.0-31.3) SEC D-Dimer, Quantitative (0-400) ng/mL Sodium (136-145) mmol/L Potassium (3.5-5.1) mmol/L Chloride (98-107) mmol/L Carbon Dioxide (21.0-32.0) mmol/L BUN (7-18) mg/dL Creatinine (0.51-1.17) mg/dL Est Cr Clr Drug Dosing Estimated GFR (MDRD) mL/min Glucose (74-106) mg/dL Lactic Acid (0.4-2.0) mmol/L Uric Acid (2.6-7.2) mg/dL Calcium (8.5-10.1) mg/dL Magnesium (1.8-2.4) mg/dL Total Bilirubin (0.2-1.0) mg/dL AST (15-37) U/L ALT (12-78) U/L Alkaline Phosphatase (46-116) IU/L Creatine Kinase 656 H (26-308) U/L Creatine Kinase Index 2.5 (0.0-2.5) % CK-MB (CK-2) 16.70 H* (0.00-3.60) ng/mL Troponin I 0.114 H* (0.000-0.056) ng/mL NT-Pro-B Natriuret Pep (0-125) pg/mL Total Protein (6.4-8.2) g/dL Albumin (3.4-5.0) g/dL TSH, Ultra Sensitive (0.358-3.740) mIU/mL Specimen Type Urine Color Urine Appearance Urine pH (5.0-9.0) Ur Specific [place] (1.005-1.030) Urine Protein (NEGATIVE) mg/dL Urine Glucose (UA) (NEGATIVE) mg/dL Urine Ketones (NEGATIVE) mg/dL Urine Occult Blood (NEGATIVE) Urine Nitrite (NEGATIVE) Urine Bilirubin (NEGATIVE) Urine Urobilinogen (0.2-1.0) E.U./dL Ur Leukocyte Esterase (NEGATIVE) Urine RBC /HPF Urine WBC /HPF Ur Epithelial Cells /LPF Urine Bacteria (NONE TO FEW) /HPF Laboratory Tests 03/24/19 03/24/19 03/24/19 Range/Units 14:12 14:12 14:12 WBC 22.3 H (4.0-10.2) K/uL RBC 3.99 (3.77-5.09) M/uL Hgb 13.3 D (11.7-15.5) g/dL Hct 40.5 (34.0-46.0) % MCV 101.5 H (84.0-98.0) fL MCH 33.3 (28.2-33.3) pg MCHC 32.8 (31.7-36.0) g/dL RDW 13.2 (11.2-14.1) % Plt Count 268 (150-350) K/uL Neut % (Auto) 87.7 H (45.0-80.0) % Lymph % (Auto) 5.4 L (10.0-50.0) % [place] % (Auto) 6.6 (2.0-14.0) % Eos % (Auto) 0.2 (0.0-5.0) % Baso % (Auto) 0.1 (0.0-2.0) % Neut # (Auto) 19.56 H (1.40-7.00) K/uL Lymph # (Auto) 1.20 (0.50-3.50) K/uL [place] # (Auto) 1.47 H (0.00-1.00) K/uL Eos # (Auto) 0.04 (0.00-0.50) K/uL Baso # (Auto) 0.03 (0.00-0.20) K/uL PT 10.2 (9.5-12.0) SEC INR 0.9 APTT 29.1 (21.0-31.3) SEC D-Dimer, Quantitative 440 H (0-400) ng/mL Sodium (136-145) mmol/L Potassium (3.5-5.1) mmol/L Chloride (98-107) mmol/L Carbon Dioxide (21.0-32.0) mmol/L BUN (7-18) mg/dL Creatinine (0.51-1.17) mg/dL Est Cr Clr Drug Dosing Estimated GFR (MDRD) mL/min Glucose (74-106) mg/dL Lactic Acid (0.4-2.0) mmol/L Uric Acid (2.6-7.2) mg/dL Calcium (8.5-10.1) mg/dL Magnesium (1.8-2.4) mg/dL Total Bilirubin (0.2-1.0) mg/dL AST (15-37) U/L ALT (12-78) U/L Alkaline Phosphatase (46-116) IU/L Creatine Kinase (26-308) U/L Creatine Kinase Index (0.0-2.5) % CK-MB (CK-2) (0.00-3.60) ng/mL Troponin I (0.000-0.056) ng/mL NT-Pro-B Natriuret Pep (0-125) pg/mL Total Protein (6.4-8.2) g/dL Albumin (3.4-5.0) g/dL TSH, Ultra Sensitive (0.358-3.740) mIU/mL Specimen Type Urine Color Urine Appearance Urine pH (5.0-9.0) Ur Specific [place] (1.005-1.030) Urine Protein (NEGATIVE) mg/dL Urine Glucose (UA) (NEGATIVE) mg/dL Urine Ketones (NEGATIVE) mg/dL Urine Occult Blood (NEGATIVE) Urine Nitrite (NEGATIVE) Urine Bilirubin (NEGATIVE) Urine Urobilinogen (0.2-1.0) E.U./dL Ur Leukocyte Esterase (NEGATIVE) Urine RBC /HPF Urine WBC /HPF Ur Epithelial Cells /LPF Urine Bacteria (NONE TO FEW) /HPF 03/24/19 03/24/19 03/24/19 Range/Units 14:12 14:12 16:05 WBC (4.0-10.2) K/uL RBC (3.77-5.09) M/uL Hgb (11.7-15.5) g/dL Hct (34.0-46.0) % MCV (84.0-98.0) fL MCH (28.2-33.3) pg MCHC (31.7-36.0) g/dL RDW (11.2-14.1) % Plt Count (150-350) K/uL Neut % (Auto) (45.0-80.0) % Lymph % (Auto) (10.0-50.0) % [place] % (Auto) (2.0-14.0) % Eos % (Auto) (0.0-5.0) % Baso % (Auto) (0.0-2.0) % Neut # (Auto) (1.40-7.00) K/uL Lymph # (Auto) (0.50-3.50) K/uL [place] # (Auto) (0.00-1.00) K/uL Eos # (Auto) (0.00-0.50) K/uL Baso # (Auto) (0.00-0.20) K/uL PT (9.5-12.0) SEC INR APTT (21.0-31.3) SEC D-Dimer, Quantitative (0-400) ng/mL Sodium 138 (136-145) mmol/L Potassium 5.1 (3.5-5.1) mmol/L Chloride 98 (98-107) mmol/L Carbon Dioxide 32.2 H (21.0-32.0) mmol/L BUN 13 (7-18) mg/dL Creatinine 0.81 (0.51-1.17) mg/dL Est Cr Clr Drug Dosing TNP Estimated GFR (MDRD) > 60 mL/min Glucose 145 H (74-106) mg/dL Lactic Acid 0.9 (0.4-2.0) mmol/L Uric Acid 5.0 (2.6-7.2) mg/dL Calcium 9.0 (8.5-10.1) mg/dL Magnesium 2.1 (1.8-2.4) mg/dL Total Bilirubin 0.3 (0.2-1.0) mg/dL AST 33 (15-37) U/L ALT 24 (12-78) U/L Alkaline Phosphatase 189 H (46-116) IU/L Creatine Kinase 495 H (26-308) U/L Creatine Kinase Index 2.8 H (0.0-2.5) % CK-MB (CK-2) 14.00 H* (0.00-3.60) ng/mL Troponin I 0.054 (0.000-0.056) ng/mL NT-Pro-B Natriuret Pep 415 H (0-125) pg/mL Total Protein 7.8 (6.4-8.2) g/dL Albumin 3.8 (3.4-5.0) g/dL TSH, Ultra Sensitive 1.289 (0.358-3.740) mIU/mL Specimen Type Urincc Urine Color Yellow Urine Appearance Clear Urine pH 7.0 (5.0-9.0) Ur Specific [place] 1.020 (1.005-1.030) Urine Protein 30 H (NEGATIVE) mg/dL Urine Glucose (UA) Negative (NEGATIVE) mg/dL Urine Ketones 15 H (NEGATIVE) mg/dL Urine Occult Blood Trace-intact H (NEGATIVE) Urine Nitrite Negative (NEGATIVE) Urine Bilirubin Negative (NEGATIVE) Urine Urobilinogen 0.2 (0.2-1.0) E.U./dL Ur Leukocyte Esterase Negative (NEGATIVE) Urine RBC 0-5 /HPF Urine WBC 0-5 /HPF Ur Epithelial Cells Few /LPF Urine Bacteria Few (NONE TO FEW) /HPF 03/24/19 Range/Units 20:37 WBC (4.0-10.2) K/uL RBC (3.77-5.09) M/uL Hgb (11.7-15.5) g/dL Hct (34.0-46.0) % MCV (84.0-98.0) fL MCH (28.2-33.3) pg MCHC (31.7-36.0) g/dL RDW (11.2-14.1) % Plt Count (150-350) K/uL Neut % (Auto) (45.0-80.0) % Lymph % (Auto) (10.0-50.0) % [place] % (Auto) (2.0-14.0) % Eos % (Auto) (0.0-5.0) % Baso % (Auto) (0.0-2.0) % Neut # (Auto) (1.40-7.00) K/uL Lymph # (Auto) (0.50-3.50) K/uL [place] # (Auto) (0.00-1.00) K/uL Eos # (Auto) (0.00-0.50) K/uL Baso # (Auto) (0.00-0.20) K/uL PT (9.5-12.0) SEC INR APTT (21.0-31.3) SEC D-Dimer, Quantitative (0-400) ng/mL Sodium (136-145) mmol/L Potassium (3.5-5.1) mmol/L Chloride (98-107) mmol/L Carbon Dioxide (21.0-32.0) mmol/L BUN (7-18) mg/dL Creatinine (0.51-1.17) mg/dL Est Cr Clr Drug Dosing Estimated GFR (MDRD) mL/min Glucose (74-106) mg/dL Lactic Acid (0.4-2.0) mmol/L Uric Acid (2.6-7.2) mg/dL Calcium (8.5-10.1) mg/dL Magnesium (1.8-2.4) mg/dL Total Bilirubin (0.2-1.0) mg/dL AST (15-37) U/L ALT (12-78) U/L Alkaline Phosphatase (46-116) IU/L Creatine Kinase 656 H (26-308) U/L Creatine Kinase Index 2.5 (0.0-2.5) % CK-MB (CK-2) 16.70 H* (0.00-3.60) ng/mL Troponin I 0.114 H* (0.000-0.056) ng/mL NT-Pro-B Natriuret Pep (0-125) pg/mL Total Protein (6.4-8.2) g/dL Albumin (3.4-5.0) g/dL TSH, Ultra Sensitive (0.358-3.740) mIU/mL Specimen Type Urine Color Urine Appearance Urine pH (5.0-9.0) Ur Specific [place] (1.005-1.030) Urine Protein (NEGATIVE) mg/dL Urine Glucose (UA) (NEGATIVE) mg/dL Urine Ketones (NEGATIVE) mg/dL Urine Occult Blood (NEGATIVE) Urine Nitrite (NEGATIVE) Urine Bilirubin (NEGATIVE) Urine Urobilinogen (0.2-1.0) E.U./dL Ur Leukocyte Esterase (NEGATIVE) Urine RBC /HPF Urine WBC /HPF Ur Epithelial Cells /LPF Urine Bacteria (NONE TO FEW) /HPF EVON Results - Last 24 hrs: None Med Orders - Current: Current Medications Acetaminophen (Tylenol) 650 mg PO Q4H PRN PRN Reason: Pain Last Admin: 03/24/19 19:20 Dose: 650 mg Albuterol (Proventil Neb Soln) 2.5 mg NEB Q2H PRN PRN Reason: Dyspnea Albuterol/Ipratropium (Duoneb 3.0-0.5 Mg/3 Ml) 3 ml NEB Q4HRRT [facility] Last Admin: 03/24/19 20:49 Dose: 3 ml Alprazolam (Xanax) 0.5 mg PO DAILY [facility] Atorvastatin Calcium (Lipitor) 20 mg PO DAILY [facility] Budesonide (Pulmicort) 0.5 mg NEB BIDRT [facility] Bupropion HCl (Wellbutrin Xl) 150 mg PO DAILY [facility] Diltiazem HCl (Cardizem Cd) 120 mg PO QPM [facility] Last Admin: 03/24/19 19:18 Dose: 120 mg Enalapril Maleate (Vasotec) 20 mg PO DAILY [facility] Enoxaparin Sodium (Lovenox) 40 mg SUBCUT Q24H [facility] Last Admin: 03/24/19 20:52 Dose: 40 mg Escitalopram Oxalate (Lexapro) 20 mg PO DAILY [facility] Furosemide (Lasix) 40 mg IVPUSH Q8H [facility] Last Admin: 03/24/19 20:37 Dose: 40 mg Guaifenesin/Dextromethorphan (Mucinex Dm Er 600-30 Mg) 1 tab PO BID [facility] Last Admin: 03/24/19 19:19 Dose: 1 tab Levofloxacin/Dextrose 500 mg/ (Premix) 100 mls @ 100 mls/hr IV Q24H [facility] Lorazepam (Ativan) 1 mg PO BID PRN PRN Reason: Anxiety Last Admin: 03/24/19 19:25 Dose: 1 mg Multivitamins/Minerals/Vitamin C (Tab-A-Kianna) 1 tab PO DAILY [facility] Nicotine (Habitrol) 21 mg TRDERM QPM [facility] Last Admin: 03/24/19 19:20 Dose: 21 mg Non-Formulary Medication (Roflumilast [Daliresp]) 500 mcg PO DAILY [facility] Non-Formulary Medication (Zinc Acetate [Galzin]) 1 tab PO DAILY [facility] Omeprazole (Omeprazole) 20 mg PO ACBREAKFAST [facility] Potassium Chloride (Klor-Con M20) 20 meq PO TID [facility] Last Admin: 03/24/19 19:19 Dose: 20 meq Pregabalin (Lyrica) 75 mg PO TID [facility] Last Admin: 03/24/19 19:18 Dose: 75 mg Sodium Chloride (Saline Flush) 10 ml FLUSH ASDIRECTED PRN PRN Reason: Keep Vein Open Last Admin: 03/24/19 19:21 Dose: 10 ml Sodium Chloride (Saline Flush) 10 ml FLUSH Q12HR PRN PRN Reason: Keep Vein Open Tizanidine HCl (Zanaflex) 2 mg PO TID [facility] Last Admin: 03/24/19 19:19 Dose: 2 mg Trazodone HCl (Trazodone) 100 mg PO BEDTIME [facility] Last Admin: 03/24/19 19:19 Dose: 100 mg Trimethoprim/Sulfamethoxazole (Septra Ds) 1 tab PO BID [facility] Last Admin: 03/24/19 21:00 Dose: 1 tab Discontinued Medications Albuterol (Proventil Neb Soln) 2.5 mg INH ONETIME ONE Stop: 03/24/19 16:03 Last Admin: 03/24/19 16:30 Dose: 2.5 mg Albuterol/Ipratropium (Duoneb 3.0-0.5 Mg/3 Ml) 3 ml NEB ONETIME ONE Stop: 03/24/19 14:12 Last Admin: 03/24/19 14:20 Dose: 3 ml Aspirin (Aspirin) 324 mg CHEW ONETIME ONE Stop: 03/24/19 14:13 Last Admin: 03/24/19 14:19 Dose: 324 mg Budesonide (Pulmicort) 0.5 mg NEB ONETIME ONE Stop: 03/24/19 14:12 Last Admin: 03/24/19 14:20 Dose: 0.5 mg Diltiazem HCl (Diltiazem) 20 mg IVPUSH ONETIME ONE Stop: 03/24/19 15:12 Last Admin: 03/24/19 15:18 Dose: 20 mg Diltiazem HCl (Diltiazem) 20 mg IVPUSH ONETIME ONE Stop: 03/24/19 20:10 Last Admin: 03/24/19 20:39 Dose: 10 mg Enoxaparin Sodium (Lovenox) 40 mg SUBCUT Q24H [facility] Last Admin: 03/24/19 21:35 Dose: Not Given Famotidine (Pepcid) 40 mg IVPUSH ONETIME ONE Stop: 03/24/19 14:13 Last Admin: 03/24/19 14:19 Dose: 40 mg Furosemide (Lasix) 60 mg IVPUSH NOW ONE Stop: 03/24/19 14:17 Last Admin: 03/24/19 14:19 Dose: 60 mg Levofloxacin/Dextrose 500 mg/ (Premix) 100 mls @ 100 mls/hr IV ONETIME ONE Stop: 03/24/19 16:51 Last Admin: 03/24/19 15:58 Dose: 100 mls/hr Iopamidol (Isovue-370 (76%)) 100 ml IVPUSH ONETIME ONE Stop: 03/24/19 15:00 Last Admin: 03/24/19 15:33 Dose: 100 ml Methylprednisolone Sodium Succinate (Solu-Medrol) 125 mg IVPUSH ONETIME ONE Stop: 03/24/19 17:58 Last Admin: 03/24/19 19:20 Dose: 125 mg Metoprolol Tartrate (Lopressor) 2.5 mg IVPUSH ONETIME ONE Stop: 03/24/19 14:13 Last Admin: 03/24/19 14:19 Dose: 2.5 mg Metoprolol Tartrate (Lopressor) 2.5 mg IVPUSH ONETIME ONE Stop: 03/24/19 14:40 Last Admin: 03/24/19 14:47 Dose: 2.5 mg Naloxone HCl (Narcan) 2 mg IVPUSH ONETIME ONE Stop: 03/24/19 14:40 Last Admin: 03/24/19 14:45 Dose: 2 mg Ticagrelor (Brilinta) 180 mg PO ONETIME ONE Stop: 03/24/19 14:13 Last Admin: 03/24/19 14:20 Dose: 180 mg - Exam Quality Assessment: Reports: Supplemental Oxygen, DVT Prophylaxis (Subcutaneous Lovenox). Denies: Central Line/PICC, Urine Catheter, Skin Breakdown, Restraints General: Reports: Mild Distress, Sedated HEENT: Reports: Pupils Equal, Pupils Reactive, EOMI, Mucous Membr. Moist/[place] Neck: Reports: Supple, Trachea Midline, No JVD, No Thyromegaly (Bilateral carotid bruit), Carotid Bruit. Denies: Lymphadenopathy, Thyromegaly Lungs: Reports: Rales (Mild diffuse bilateral), Rhonchi (Mild diffuse bilateral) , Wheezing (Mild diffuse bilateral), Other ([place] breathing). Denies: Rub Cardiovascular: Reports: Regular Rate, Regular Rhythm, No Murmurs. Denies: Murmurs, Rubs GI/Abdominal Exam: Normal Bowel Sounds, Soft, Non-Tender, No Organomegaly, No Distention, No Abnormal Bruit, No Mass, Pelvis Stable, Other (Obese). No: Guarding (Female) Exam: Deferred Rectal (Female) Exam: Deferred Extremities: Normal Range of Motion, Non-Tender, No Pedal Edema, Normal Capillary Refill, Other (Kyphosis). No: Juan R's Sign Skin: Reports: Warm, Dry, Intact. Denies: Ecchymosis Neurological: Reports: No New Focal Deficit Psy/Mental Status: Reports: Other (Sedated). Denies: Agitated, Hallucinations, Withdrawal Symptoms EKG INTERPRETATION EKG Date: 03/24/19 Time: 21:20 Rhythm: NSR (Resolution of previous sinus tachycardia.) Rate (Beats/Min): 84 [place]: Normal (Neutral cardiac axis) P-Wave: Enlarged (Mild diffuse biphasic P waves) QRS: Normal (0.08 seconds) ST-T: Other (New T wave inversions in leads V1 and aVL) QT: Normal CT/PQ Interval: 0.11 seconds representing a short CT interval with no delta waves. Comparison: Change From Previous EKG (As above since earlier this morning) EKG Interpretation Comments: 1. No acute ischemic changes 2. Short CT interval
[2019-03-24 22:19] VITALS: BP 113/62
[2019-03-25] MEDS ORDERED: Omeprazole 20 MG Cap.CR PO SCH (07:30)
[2019-03-25] MEDS ORDERED: Enalapril 5 MG Tab PO SCH (08:00)
[2019-03-25] MEDS ORDERED: ZINC ACETATE PO SCH (08:00)
[2019-03-25] MEDS ORDERED: Multivitamin Tab PO SCH (08:00)
[2019-03-25] MEDS ORDERED: Budesonide 0.5 MG/2 ML Neb Susp NEB SCH (08:00)
[2019-03-25] MEDS ORDERED: Non-Formulary Medication 1 Each (Roflumilast [Daliresp] 500 MCG) PO SCH (08:00)
[2019-03-25] MEDS ORDERED: atorvaSTATin 10 MG Tab PO SCH (08:00)
[2019-03-25] MEDS ORDERED: ALPRAZolam 0.25 MG Tab PO SCH (08:00)
[2019-03-25] MEDS ORDERED: Escitalopram 20 MG Tab PO SCH (08:00)
[2019-03-25] MEDS ORDERED: buPROPion 150 MG Tab.ER PO SCH (08:00)
[2019-03-25] MEDS ORDERED: Levofloxacin/Dextrose 5%-Water 500 MG in Premix Bag 1 BAG IV SCH (16:00)
== END 2019-03-24 22:39 | DRG 280 ==
LOC: LL.ED 14:09 → LL.MS 16:54
PROVIDERS: ADMIT Family Medicine; ATTEND Family Medicine
DX: I21.4 Non-ST elevation (NSTEMI) myocardial infarction (principal); J18.9 Pneumonia, unspecified organism; J96.00 Acute respiratory failure, unspecified whether with hypoxia or hypercapnia; I11.0 Hypertensive heart disease with heart failure; J43.1 Panlobular emphysema; J30.9 Allergic rhinitis, unspecified; M15.0 Primary generalized (osteo)arthritis; E78.00 Pure hypercholesterolemia, unspecified; I50.9 Heart failure, unspecified; G43.909 Migraine, unspecified, not intractable, without status migrainosus; G62.9 Polyneuropathy, unspecified; E66.9 Obesity, unspecified; M81.0 Age-related osteoporosis without current pathological fracture; F17.210 Nicotine dependence, cigarettes, uncomplicated; R79.89 Other specified abnormal findings of blood chemistry; E78.5 Hyperlipidemia, unspecified; I49.1 Atrial premature depolarization; I10 Essential (primary) hypertension; I49.3 Ventricular premature depolarization; F41.8 Other specified anxiety disorders; Z90.49 Acquired absence of other specified parts of digestive tract; Z98.1 Arthrodesis status; Z79.52 Long term (current) use of systemic steroids; Z86.010 Personal history of colon polyps; J96.10 Chronic respiratory failure, unspecified whether with hypoxia or hypercapnia; Z99.81 Dependence on supplemental oxygen; Z68.27 Body mass index [BMI] 27.0-27.9, adult; Z79.51 Long term (current) use of inhaled steroids; Z79.899 Other long term (current) drug therapy; Z88.0 Allergy status to penicillin; Z88.8 Allergy status to other drugs, medicaments and biological substances; H91.90 Unspecified hearing loss, unspecified ear; H54.7 Unspecified visual loss; G89.29 Other chronic pain; M54.5 Low back pain; F17.200 Nicotine dependence, unspecified, uncomplicated
CPT/HCPCS: 36415; 71045; 71275; 80053; 81001; 82550; 82553; 83605; 83735; 83880; 84443; 84484; 84550; 85025; 85379; 85610; 85730; 87040; 87070; 87077; 87086; 87205; 93005; 94640; 96365; 96375; A4217; A9270-GY; J1650; J1940; J1956; J2310; J2930; J3490; J7613-GY; J7620-GY; Q9967

== ENCOUNTER → 2019-09-07 | Outpatient (CLI) | payer MEDICARE, MEDICAID | LOC: LL.MAM 14:38 | PROVIDERS: ATTEND Physician Assistant | DX: Z12.31 Encounter for screening mammogram for malignant neoplasm of breast (principal) | CPT/HCPCS: 77063; 77067 ==

== ENCOUNTER 2022-04-15 21:26 | Emergency (ER) | payer MEDICARE, MEDICAID ==
[2022-04-15 23:16] VITALS: BP 132/78; PULSE 87
== END 2022-04-15 22:50 | disposition home or self-care (01) ==
LOC: LL.ED 21:26
DX: S80.11XA Contusion of right lower leg, initial encounter (principal); S00.83XA Contusion of other part of head, initial encounter; J43.1 Panlobular emphysema; I11.0 Hypertensive heart disease with heart failure; I50.9 Heart failure, unspecified; E78.00 Pure hypercholesterolemia, unspecified; M19.90 Unspecified osteoarthritis, unspecified site; F17.200 Nicotine dependence, unspecified, uncomplicated; E66.9 Obesity, unspecified; Z68.30 Body mass index [BMI] 30.0-30.9, adult; Z88.0 Allergy status to penicillin; Z91.048 Other nonmedicinal substance allergy status; Z88.5 Allergy status to narcotic agent; Z79.899 Other long term (current) drug therapy; W18.30XA Fall on same level, unspecified, initial encounter; Y92.009 Unspecified place in unspecified non-institutional (private) residence as the place of occurrence of the external cause
CPT/HCPCS: 71046; 73560-RT; 99284-25; 99285

== ENCOUNTER 2022-09-25 19:22 | Observation (INO) | payer MEDICARE, MEDICAID ==
[2022-09-25] MEDS ORDERED: Albuterol/Ipratropium 3.0-0.5 MG/3 ML Neb Soln NEB ONE (20:16)
[2022-09-25] MEDS ORDERED: Lactated Ringers 1,000 ML IV SCH (20:30)
[2022-09-25 20:40] LABS: CHLORIDE,CL 100 mmol/L (98-107); SODIUM,NA 140 mmol/L (136-145)
[2022-09-25 20:42] LABS: ANION GAP 7.4 meq/L (7-15); ESTIMATED GFR 76 mL/min (>=60)
[2022-09-25] MEDS ORDERED: Ondansetron 4 MG Tab.DIS PO PRN (22:37)
[2022-09-25] MEDS ORDERED: Acetaminophen 325 MG Tab PO PRN (22:37)
[2022-09-25] MEDS ORDERED: Azithromycin 500 MG in Sodium Chloride 0.9% 250 ML IV SCH (23:00)
[2022-09-25] MEDS ORDERED: cefTRIAXone 1 GM in Sodium Chloride 0.9% 100 ML IV SCH (23:00)
[2022-09-26] MEDS: Sodium Chloride 0.9% 10 ML Syringe FLUSH PRN ×2 (01:52→07:50)
[2022-09-26] MEDS ORDERED: cefTRIAXone 1 GM in Sodium Chloride 0.9% 100 ML IV SCH (04:00)
[2022-09-26] MEDS ORDERED: Azithromycin 500 MG in Sodium Chloride 0.9% 250 ML IV SCH (04:00)
[2022-09-26] MEDS: predniSONE 20 MG Tab PO SCH ×2 (04:19→04:20)
[2022-09-26] MEDS ORDERED: predniSONE 20 MG Tab PO ONE (04:30)
[2022-09-26] MEDS: Pregabalin 75 MG Cap PO SCH ×2 (07:51→11:27)
[2022-09-26] MEDS ORDERED: buPROPion 150 MG Tab.ER PO SCH (08:00)
[2022-09-26] MEDS ORDERED: busPIRone 15 MG Tab PO SCH (08:00)
[2022-09-26] MEDS ORDERED: Formoterol/Mometasone 200-5 MCG 8.8 GM Inhaler IH SCH (08:00)
[2022-09-26] MEDS ORDERED: Baclofen 10 MG Tab PO SCH (08:00)
[2022-09-26] MEDS ORDERED: Escitalopram 20 MG Tab PO SCH (08:00)
[2022-09-26] MEDS ORDERED: Omeprazole 20 MG Cap.CR PO SCH (08:00)
[2022-09-26] MEDS ORDERED: predniSONE 5 MG Tab PO SCH (08:00)
[2022-09-26] MEDS ORDERED: Enoxaparin 40 MG/0.4 ML Syringe SUBCUT SCH (08:00)
[2022-09-26 08:33] LABS: ANION GAP 8.3 meq/L (7-15)
[2022-09-26 10:27] VITALS: BP 138/59; PULSE 85
[2022-09-26] MEDS ORDERED: traZODone 50 MG Tab PO SCH (20:00)
[2022-09-26] MEDS ORDERED: Montelukast 10 MG Tab PO SCH (20:00)
[2022-09-26] MEDS ORDERED: Primidone 50 MG Tab PO SCH (20:00)
[2022-09-27] MEDS ORDERED: predniSONE 20 MG Tab PO SCH (08:00)
== END 2022-09-26 15:30 | disposition home or self-care (01) ==
LOC: LL.ED 19:22 → LL.MS 20:30
PROVIDERS: ADMIT Hospitalist; ATTEND Hospitalist
DX: J44.1 Chronic obstructive pulmonary disease with (acute) exacerbation (principal); D64.9 Anemia, unspecified; E78.2 Mixed hyperlipidemia; F41.1 Generalized anxiety disorder; I11.0 Hypertensive heart disease with heart failure; I50.32 Chronic diastolic (congestive) heart failure; J96.11 Chronic respiratory failure with hypoxia; F32.9 Major depressive disorder, single episode, unspecified; E78.00 Pure hypercholesterolemia, unspecified; M19.90 Unspecified osteoarthritis, unspecified site; M81.0 Age-related osteoporosis without current pathological fracture; R42 Dizziness and giddiness; Z79.899 Other long term (current) drug therapy; Z88.8 Allergy status to other drugs, medicaments and biological substances; Z90.49 Acquired absence of other specified parts of digestive tract; Z98.890 Other specified postprocedural states; Z98.1 Arthrodesis status; W19.XXXA Unspecified fall, initial encounter; Y92.009 Unspecified place in unspecified non-institutional (private) residence as the place of occurrence of the external cause
CPT/HCPCS: 36415; 71045; 80048; 80053; 81003; 83735; 83880; 85025; 85027; 94640; 99285; A9270; J0456; J0696; J1650; J3490; J7050; J7120; J7512; 96361; 96365; 96367; G0378; J7620-GY

== ENCOUNTER 2023-03-12 16:22 | Inpatient (IN) | payer MEDICARE, MEDICAID ==
[2023-03-12] MEDS ORDERED: Sodium Chloride 0.9% 500 ML IV ONE (16:32)
[2023-03-12 16:43] LABS: BASOPHILS ABSOLUTE AUTO 0.02 K/uL (0.00-0.20); BASOPHILS PERCENT AUTO 0.1 % (0.0-2.0); EOSINOPHILS ABSOLUTE AUTO 0.01 K/uL (0.00-0.50); HEMATOCRIT 39.6 % (34.0-46.0); LYMPHOCYTES PERCENT AUTO 2.6 % (10.0-50.0); MEAN CORPUSCULAR HGB CONC 32.8 g/dL (31.7-36.0); MEAN CORPUSCULAR VOLUME 100.5 fL (84.0-98.0); MONOCYTES ABSOLUTE AUTO 1.64 K/uL (0.00-1.00); MONOCYTES PERCENT AUTO 4.7 % (2.0-14.0); NEUTROPHILS ABSOLUTE AUTO 32.07 K/uL (1.40-7.00); NEUTROPHILS PERCENT AUTO 92.6 % (45.0-80.0); PLATELET COUNT,PLT 329 K/uL (150-350); RED BLOOD CELL COUNT 3.94 M/uL (3.77-5.09); RED CELL DISTRIBUTION WIDTH 13.4 % (11.2-14.1); WHITE BLOOD CELL COUNT,WBC 34.6 K/uL (4.0-10.2)
[2023-03-12] MEDS ORDERED: Albuterol/Ipratropium 3.0-0.5 MG/3 ML Neb Soln NEB ONE (16:45)
[2023-03-12 17:08] LABS: ALANINE AMINOTRANSFERASE,ALT 16 U/L (12-78); ALBUMIN 3.6 g/dL (3.4-5.0); ALKALINE PHOSPHATASE 86 IU/L (46-116); ASPARTATE AMNIOTRANSFERASE,AST 18 U/L (15-37); BILIRUBIN TOTAL 0.4 mg/dL (0.2-1.0); BLOOD UREA NITROGEN,BUN 8 mg/dL (7-18); CALCIUM 9.1 mg/dL (8.5-10.1); CHLORIDE,CL 103 mmol/L (98-107); CREATINE KINASE,CK 93 U/L (26-308); CREATININE 0.98 mg/dL (0.51-1.17); ESTIMATED GFR 59 mL/min (>=60); GLUCOSE RANDOM 188 mg/dL (70-99); POTASSIUM,K 4.4 mmol/L (3.5-5.1); PROTEIN TOTAL,TP 7.2 g/dL (6.4-8.2); SODIUM,NA 139 mmol/L (136-145)
[2023-03-12 17:18] LABS: ANION GAP 9.7 meq/L (7-15); CARBON DIOXIDE,CO2 30.7 mmol/L (21.0-32.0)
[2023-03-12] MEDS: Sodium Chloride 0.9% 1,000 ML IV ONE ×2 (17:40→23:58)
[2023-03-12 17:50] LABS: CORONAVIRUS COVID-19 NAA NEGATIVE (NEGATIVE); INFLUENZA A NAA NEGATIVE (NEGATIVE); INFLUENZA B NAA NEGATIVE (NEGATIVE); RESPIRATORY SYNCYTIAL VIR NAA NEGATIVE (NEGATIVE)
[2023-03-12] MEDS ORDERED: Labetalol 20 MG/4 ML Syringe IVPUSH ONE (19:04)
[2023-03-12] MEDS: Nicotine 21 MG/24 Hr Patch TRDERM SCH (19:50)
[2023-03-12] MEDS ORDERED: Diclofenac Sodium 1% Gel 100 GM Tube TOP PRN (20:17)
[2023-03-12] MEDS ORDERED: Albuterol 6.7 GM Inhaler INH PRN (20:17)
[2023-03-12] MEDS: Metoprolol Tartrate 5 MG/5 ML SDV IVPUSH SCH (21:08)
[2023-03-12] MEDS: Primidone 50 MG Tab PO SCH (21:24)
[2023-03-12] MEDS: Acetaminophen 325 MG Tab PO PRN (22:17)
[2023-03-12 23:42] LABS: APPEARANCE,URINE CLEAR; BILIRUBIN,URINE NEGATIVE (NEGATIVE); COLOR,URINE YELLOW; GLUCOSE,URINE NEGATIVE (NEGATIVE); KETONES,URINE NEGATIVE (NEGATIVE); LEUKOCYTE ESTERASE,URINE NEGATIVE (NEGATIVE); NITRITE,URINE NEGATIVE (NEGATIVE); OCCULT BLOOD,URINE NEGATIVE (NEGATIVE); PROTEIN,URINE NEGATIVE (NEGATIVE); UROBILINOGEN,URINE 0.2 E.U./dL (0.2-1.0)
[2023-03-12 23:45] LABS: LACTIC ACID 0.7 mmol/L (0.4-2.0)
[2023-03-12] MEDS: Piperacillin/Tazobactam 3.375 GM in Sodium Chloride 0.9% 100 ML IV SCH (23:58)
[2023-03-13] MEDS: Albuterol/Ipratropium 3.0-0.5 MG/3 ML Neb Soln INH PRN ×3 (00:17→20:42)
[2023-03-13] MEDS: Metoprolol Tartrate 5 MG/5 ML SDV IVPUSH SCH (00:19)
[2023-03-13] MEDS ORDERED: Non-Formulary Medication 1 Each PO SCH (08:00)
[2023-03-13] MEDS ORDERED: predniSONE 20 MG Tab PO SCH (08:00)
[2023-03-13] MEDS: LORazepam 0.5 MG Tab PO PRN (08:16)
[2023-03-13] MEDS: busPIRone 15 MG Tab PO SCH ×2 (08:16→17:15)
[2023-03-13] MEDS: Formoterol/Mometasone 200-5 MCG 8.8 GM Inhaler IH SCH ×2 (08:17→17:16)
[2023-03-13] MEDS: Ferrous Sulfate 325 MG Tab PO SCH (08:18)
[2023-03-13] MEDS: Fish Oil/Omega-3 Fatty Acids 1 Gm Cap PO SCH (08:18)
[2023-03-13] MEDS: Nicotine 21 MG/24 Hr Patch TRDERM SCH (08:19)
[2023-03-13] MEDS: Aspirin 81 MG Tab.EC PO SCH (08:19)
[2023-03-13] MEDS: Escitalopram 20 MG Tab PO SCH (08:19)
[2023-03-13] MEDS: Pregabalin 100 MG Cap PO SCH ×3 (08:19→17:15)
[2023-03-13] MEDS: buPROPion 150 MG Tab.ER PO SCH (08:20)
[2023-03-13] MEDS: Zinc (Zinc Gluconate) 50 MG Tab PO SCH (08:20)
[2023-03-13] MEDS: Omeprazole 20 MG Cap.CR PO SCH (08:20)
[2023-03-13] MEDS: Piperacillin/Tazobactam 3.375 GM in Sodium Chloride 0.9% 100 ML IV SCH ×4 (08:20→23:23)
[2023-03-13] MEDS: Multivitamin Tab PO SCH (08:20)
[2023-03-13] MEDS ORDERED: Non-Formulary Medication 1 Each (Roflumilast [Roflumilast] 500 MCG Tablet) PO SCH (08:45)
[2023-03-13] MEDS ORDERED: predniSONE 1 MG Tab PO SCH (08:45)
[2023-03-13] MEDS: Sodium Chloride 0.9% 10 ML Syringe FLUSH PRN ×3 (17:07→17:31)
[2023-03-13] MEDS: Primidone 50 MG Tab PO SCH (19:09)
[2023-03-13] MEDS: Montelukast 10 MG Tab PO SCH (19:09)
[2023-03-13] MEDS: Acetaminophen 325 MG Tab PO PRN (19:28)
[2023-03-14] MEDS ORDERED: diphenhydrAMINE 25 MG Cap PO PRN (07:39)
[2023-03-14] MEDS: Sodium Chloride 0.9% 10 ML Syringe FLUSH PRN ×5 (08:06→23:30)
[2023-03-14] MEDS: Albuterol/Ipratropium 3.0-0.5 MG/3 ML Neb Soln INH PRN ×3 (08:06→23:08)
[2023-03-14] MEDS: Fish Oil/Omega-3 Fatty Acids 1 Gm Cap PO SCH (08:06)
[2023-03-14] MEDS: predniSONE 1 MG Tab PO SCH (08:06)
[2023-03-14] MEDS: Escitalopram 20 MG Tab PO SCH (08:07)
[2023-03-14] MEDS: buPROPion 150 MG Tab.ER PO SCH (08:07)
[2023-03-14] MEDS: Zinc (Zinc Gluconate) 50 MG Tab PO SCH (08:07)
[2023-03-14] MEDS: Ferrous Sulfate 325 MG Tab PO SCH (08:07)
[2023-03-14] MEDS: busPIRone 15 MG Tab PO SCH ×2 (08:07→17:05)
[2023-03-14] MEDS: LORazepam 0.5 MG Tab PO PRN (08:08)
[2023-03-14] MEDS: Omeprazole 20 MG Cap.CR PO SCH (08:08)
[2023-03-14] MEDS: Pregabalin 100 MG Cap PO SCH ×3 (08:08→17:05)
[2023-03-14] MEDS: predniSONE 5 MG Tab PO SCH (08:08)
[2023-03-14] MEDS: Multivitamin Tab PO SCH (08:08)
[2023-03-14] MEDS: Formoterol/Mometasone 200-5 MCG 8.8 GM Inhaler IH SCH ×2 (08:09→17:05)
[2023-03-14] MEDS: Aspirin 81 MG Tab.EC PO SCH (08:09)
[2023-03-14] MEDS: Nicotine 21 MG/24 Hr Patch TRDERM SCH (08:09)
[2023-03-14] MEDS: Piperacillin/Tazobactam 3.375 GM in Sodium Chloride 0.9% 100 ML IV SCH ×3 (08:09→23:28)
[2023-03-14 09:33] LABS: HEMATOCRIT 30.7 % (34.0-46.0); MEAN CORPUSCULAR HEMOGLOBIN 33.2 pg (28.2-33.3); MEAN CORPUSCULAR HGB CONC 32.6 g/dL (31.7-36.0); RED BLOOD CELL COUNT 3.01 M/uL (3.77-5.09); WHITE BLOOD CELL COUNT,WBC 11.6 K/uL (4.0-10.2)
[2023-03-14 09:34] LABS: BASOPHILS ABSOLUTE AUTO 0.03 K/uL (0.00-0.20); BASOPHILS PERCENT AUTO 0.3 % (0.0-2.0); EOSINOPHILS ABSOLUTE AUTO 0.06 K/uL (0.00-0.50); EOSINOPHILS PERCENT AUTO 0.5 % (0.0-5.0); LYMPHOCYTES ABSOLUTE AUTO 2.99 K/uL (0.50-3.50); LYMPHOCYTES PERCENT AUTO 25.7 % (10.0-50.0); MONOCYTES ABSOLUTE AUTO 0.81 K/uL (0.00-1.00); NEUTROPHILS ABSOLUTE AUTO 7.75 K/uL (1.40-7.00); NEUTROPHILS PERCENT AUTO 66.5 % (45.0-80.0); PLATELET COUNT,PLT 211 K/uL (150-350)
[2023-03-14 10:15] LABS: ANION GAP 10.2 meq/L (7-15); CALCIUM 8.2 mg/dL (8.5-10.1); CARBON DIOXIDE,CO2 27.1 mmol/L (21.0-32.0); CREATININE 0.83 mg/dL (0.51-1.17); EST CRCL DRUG DOSING (CG) 40.77 mL/min; POTASSIUM,K 3.3 mmol/L (3.5-5.1)
[2023-03-14 10:16] LABS: ALBUMIN 2.8 g/dL (3.4-5.0); BILIRUBIN TOTAL 0.3 mg/dL (0.2-1.0)
[2023-03-14] MEDS: Montelukast 10 MG Tab PO SCH (19:58)
[2023-03-14] MEDS: Primidone 50 MG Tab PO SCH (20:11)
[2023-03-14] MEDS: Metoprolol Tartrate 5 MG/5 ML SDV IVPUSH SCH (20:17)
[2023-03-14] MEDS: Acetaminophen 325 MG Tab PO PRN (23:40)
[2023-03-15] MEDS: Sodium Chloride 0.9% 10 ML Syringe FLUSH PRN ×4 (00:15→23:13)
[2023-03-15] MEDS: Metoprolol Tartrate 5 MG/5 ML SDV IVPUSH SCH ×6 (00:32→19:46)
[2023-03-15] MEDS: Albuterol/Ipratropium 3.0-0.5 MG/3 ML Neb Soln INH PRN ×4 (04:12→22:54)
[2023-03-15] MEDS: LORazepam 0.5 MG Tab PO PRN (04:42)
[2023-03-15] MEDS: Aspirin 81 MG Tab.EC PO SCH (07:47)
[2023-03-15] MEDS: Zinc (Zinc Gluconate) 50 MG Tab PO SCH (07:48)
[2023-03-15] MEDS: Fish Oil/Omega-3 Fatty Acids 1 Gm Cap PO SCH (07:48)
[2023-03-15] MEDS: Ferrous Sulfate 325 MG Tab PO SCH (07:48)
[2023-03-15] MEDS: Omeprazole 20 MG Cap.CR PO SCH (07:49)
[2023-03-15] MEDS: Multivitamin Tab PO SCH (07:49)
[2023-03-15] MEDS: buPROPion 150 MG Tab.ER PO SCH (07:50)
[2023-03-15] MEDS: predniSONE 5 MG Tab PO SCH (07:50)
[2023-03-15] MEDS: busPIRone 15 MG Tab PO SCH ×2 (07:51→17:43)
[2023-03-15] MEDS: predniSONE 1 MG Tab PO SCH (07:51)
[2023-03-15] MEDS: Escitalopram 20 MG Tab PO SCH (07:52)
[2023-03-15] MEDS: Pregabalin 100 MG Cap PO SCH ×3 (07:53→17:43)
[2023-03-15] MEDS: Formoterol/Mometasone 200-5 MCG 8.8 GM Inhaler IH SCH ×2 (07:55→18:04)
[2023-03-15] MEDS: Nicotine 21 MG/24 Hr Patch TRDERM SCH (07:55)
[2023-03-15] MEDS: Piperacillin/Tazobactam 3.375 GM in Sodium Chloride 0.9% 100 ML IV SCH ×3 (07:57→23:12)
[2023-03-15] MEDS: Montelukast 10 MG Tab PO SCH (19:46)
[2023-03-15] MEDS: Primidone 50 MG Tab PO SCH (19:46)
[2023-03-16] MEDS: Albuterol/Ipratropium 3.0-0.5 MG/3 ML Neb Soln INH PRN ×3 (05:09→16:19)
[2023-03-16] MEDS: Metoprolol Tartrate 5 MG/5 ML SDV IVPUSH SCH ×3 (05:09→11:20)
[2023-03-16 07:44] LABS: BASOPHILS ABSOLUTE AUTO 0.03 K/uL (0.00-0.20); BASOPHILS PERCENT AUTO 0.3 % (0.0-2.0); EOSINOPHILS ABSOLUTE AUTO 0.11 K/uL (0.00-0.50); EOSINOPHILS PERCENT AUTO 1.1 % (0.0-5.0); HEMATOCRIT 32.8 % (34.0-46.0); HEMOGLOBIN 10.7 g/dL (11.7-15.5); LYMPHOCYTES ABSOLUTE AUTO 3.64 K/uL (0.50-3.50); LYMPHOCYTES PERCENT AUTO 37.4 % (10.0-50.0); MEAN CORPUSCULAR HEMOGLOBIN 32.8 pg (28.2-33.3); MEAN CORPUSCULAR HGB CONC 32.6 g/dL (31.7-36.0); MEAN CORPUSCULAR VOLUME 100.6 fL (84.0-98.0); MONOCYTES ABSOLUTE AUTO 0.81 K/uL (0.00-1.00); MONOCYTES PERCENT AUTO 8.3 % (2.0-14.0); NEUTROPHILS ABSOLUTE AUTO 5.15 K/uL (1.40-7.00); NEUTROPHILS PERCENT AUTO 52.9 % (45.0-80.0); PLATELET COUNT,PLT 257 K/uL (150-350); RED BLOOD CELL COUNT 3.26 M/uL (3.77-5.09); RED CELL DISTRIBUTION WIDTH 13.1 % (11.2-14.1); WHITE BLOOD CELL COUNT,WBC 9.7 K/uL (4.0-10.2)
[2023-03-16] MEDS: Formoterol/Mometasone 200-5 MCG 8.8 GM Inhaler IH SCH (08:11)
[2023-03-16] MEDS: Omeprazole 20 MG Cap.CR PO SCH (08:13)
[2023-03-16] MEDS: Multivitamin Tab PO SCH (08:13)
[2023-03-16] MEDS: predniSONE 1 MG Tab PO SCH (08:13)
[2023-03-16] MEDS: predniSONE 5 MG Tab PO SCH (08:14)
[2023-03-16] MEDS: Escitalopram 20 MG Tab PO SCH (08:14)
[2023-03-16] MEDS: Aspirin 81 MG Tab.EC PO SCH (08:15)
[2023-03-16] MEDS: Pregabalin 100 MG Cap PO SCH ×2 (08:15→11:18)
[2023-03-16] MEDS: Ferrous Sulfate 325 MG Tab PO SCH (08:15)
[2023-03-16] MEDS: Fish Oil/Omega-3 Fatty Acids 1 Gm Cap PO SCH (08:15)
[2023-03-16] MEDS: busPIRone 15 MG Tab PO SCH (08:16)
[2023-03-16] MEDS: buPROPion 150 MG Tab.ER PO SCH (08:16)
[2023-03-16] MEDS: Zinc (Zinc Gluconate) 50 MG Tab PO SCH (08:16)
[2023-03-16] MEDS: Piperacillin/Tazobactam 3.375 GM in Sodium Chloride 0.9% 100 ML IV SCH ×2 (08:17→14:21)
[2023-03-16] MEDS: Nicotine 21 MG/24 Hr Patch TRDERM SCH (08:19)
[2023-03-16] MEDS: Sodium Chloride 0.9% 10 ML Syringe FLUSH PRN ×3 (08:20→15:15)
[2023-03-16] MEDS: Acetaminophen 325 MG Tab PO PRN (09:10)
[2023-03-16 15:06] VITALS: BP 145/64; PULSE 84
[2023-03-17] MEDS ORDERED: Alendronate 70 MG Tab PO SCH (06:00)
== END 2023-03-16 17:00 | disposition home or self-care (01) | DRG 871 ==
LOC: LL.ED 16:22 → LL.MS 18:20
PROVIDERS: ADMIT Emergency Medicine; ATTEND Emergency Medicine
DX: A41.9 Sepsis, unspecified organism (principal); J18.9 Pneumonia, unspecified organism; J96.01 Acute respiratory failure with hypoxia; R00.0 Tachycardia, unspecified; Z20.822 Contact with and (suspected) exposure to COVID-19; J44.9 Chronic obstructive pulmonary disease, unspecified; I10 Essential (primary) hypertension; J44.0 Chronic obstructive pulmonary disease with (acute) lower respiratory infection; D84.9 Immunodeficiency, unspecified; F17.290 Nicotine dependence, other tobacco product, uncomplicated; Z99.81 Dependence on supplemental oxygen; E44.0 Moderate protein-calorie malnutrition; E78.5 Hyperlipidemia, unspecified; H91.90 Unspecified hearing loss, unspecified ear; E78.00 Pure hypercholesterolemia, unspecified; I50.9 Heart failure, unspecified; K59.09 Other constipation; M81.0 Age-related osteoporosis without current pathological fracture; F41.9 Anxiety disorder, unspecified; F32.A Depression, unspecified; M54.2 Cervicalgia; G89.29 Other chronic pain; M19.90 Unspecified osteoarthritis, unspecified site; M54.9 Dorsalgia, unspecified; J84.10 Pulmonary fibrosis, unspecified; M85.80 Other specified disorders of bone density and structure, unspecified site; G47.00 Insomnia, unspecified; I11.0 Hypertensive heart disease with heart failure; Z88.0 Allergy status to penicillin; Z91.09 Other allergy status, other than to drugs and biological substances; Z79.82 Long term (current) use of aspirin; Z79.52 Long term (current) use of systemic steroids; Z79.899 Other long term (current) drug therapy
CPT/HCPCS: 0241U; 36415; 71046; 80053; 80202; 81003; 82550; 83605; 83880; 84484; 85025; 85379; 86140; 87040; 93005; 93010; 94640; 96360; 97162-GP; 99223; 99232; 99233; 99238; 99285-25; A9270-GY; J2543; J3370; J3490; J7030; J7050; J7512; J7620-GY

== ENCOUNTER 2024-08-22 15:05 | Emergency (ER) | payer MEDICARE ==
[2024-08-22] MEDS: Nitroglycerin 0.4 MG Tab.SL SL PRN (15:21)
[2024-08-22 15:35] LABS: BASOPHILS ABSOLUTE AUTO 0.04 K/uL (0.00-0.20); BASOPHILS PERCENT AUTO 0.4 % (0.0-2.0); EOSINOPHILS ABSOLUTE AUTO 0.25 K/uL (0.00-0.50); EOSINOPHILS PERCENT AUTO 2.5 % (0.0-5.0); HEMATOCRIT 39.1 % (34.0-46.0); HEMOGLOBIN 12.8 g/dL (11.7-15.5); LYMPHOCYTES ABSOLUTE AUTO 4.22 K/uL (0.50-3.50); LYMPHOCYTES PERCENT AUTO 42.4 % (10.0-50.0); MEAN CORPUSCULAR HEMOGLOBIN 32.9 pg (28.2-33.3); MEAN CORPUSCULAR HGB CONC 32.7 g/dL (31.7-36.0); MEAN CORPUSCULAR VOLUME 100.5 fL (84.0-98.0); MONOCYTES ABSOLUTE AUTO 0.59 K/uL (0.00-1.00); MONOCYTES PERCENT AUTO 5.9 % (2.0-14.0); NEUTROPHILS ABSOLUTE AUTO 4.86 K/uL (1.40-7.00); NEUTROPHILS PERCENT AUTO 48.8 % (45.0-80.0); PLATELET COUNT,PLT 307 K/uL (150-350); RED BLOOD CELL COUNT 3.89 M/uL (3.77-5.09); RED CELL DISTRIBUTION WIDTH 12.3 % (11.2-14.1)
[2024-08-22 15:39] LABS: PROTHROMBIN TIME 9.6 SEC (9.0-11.1)
[2024-08-22 15:50] LABS: LACTIC ACID 1.3 mmol/L (0.4-2.0)
[2024-08-22 15:55] LABS: ALANINE AMINOTRANSFERASE,ALT 29 U/L (12-78); ALBUMIN 3.9 g/dL (3.4-5.0); ALKALINE PHOSPHATASE 132 IU/L (46-116); ANION GAP 11.2 meq/L (7-15); ASPARTATE AMNIOTRANSFERASE,AST 22 U/L (15-37); BILIRUBIN TOTAL 0.3 mg/dL (0.2-1.0); BLOOD UREA NITROGEN,BUN 12 mg/dL (7-18); CALCIUM 9.6 mg/dL (8.5-10.1); CARBON DIOXIDE,CO2 35.5 mmol/L (21.0-32.0); CHLORIDE,CL 99 mmol/L (98-107); CREATININE 0.67 mg/dL (0.51-1.17); ESTIMATED GFR 89 mL/min (>=60); GLUCOSE RANDOM 113 mg/dL (70-99); MAGNESIUM 2.2 mg/dL (1.8-2.4); POTASSIUM,K 4.7 mmol/L (3.5-5.1); PRO B-TYPE NATRIUR PEPT,BNPPRO 135 pg/mL (0-125); PROTEIN TOTAL,TP 7.4 g/dL (6.4-8.2); SODIUM,NA 141 mmol/L (136-145)
[2024-08-22] MEDS: Sodium Chloride 0.9% 10 ML Syringe FLUSH PRN (15:55)
[2024-08-22] MEDS: methylPREDNISolone Sodium Succinate 125 MG/2 ML SDV IVPUSH ONE (15:56)
[2024-08-22] MEDS: Diltiazem 25 MG/5 ML SDV IVPUSH ONE ×2 (16:04→17:25)
[2024-08-22 16:21] LABS: CORONAVIRUS COVID-19 NAA NEGATIVE (NEGATIVE); INFLUENZA A NAA NEGATIVE (NEGATIVE); INFLUENZA B NAA NEGATIVE (NEGATIVE); RESPIRATORY SYNCYTIAL VIR NAA NEGATIVE (NEGATIVE)
[2024-08-22] MEDS: Albuterol/Ipratropium 3.0-0.5 MG/3 ML Neb Soln NEB ONE (16:27)
[2024-08-22] MEDS: LORazepam 1 MG Tab PO ONE (16:30)
[2024-08-22] MEDS ORDERED: Diltiazem 25 MG/5 ML SDV IVPUSH ONE (17:17)
[2024-08-22 17:25] VITALS: BP 115/54; PULSE 129
[2024-08-22] MEDS: Diltiazem IR 60 MG Tab PO ONE (20:25)
== END 2024-08-22 20:32 | disposition home or self-care (01) ==
LOC: LL.ED 15:05
DX: J43.1 Panlobular emphysema (principal); F17.210 Nicotine dependence, cigarettes, uncomplicated; I11.0 Hypertensive heart disease with heart failure; I50.9 Heart failure, unspecified; Z79.899 Other long term (current) drug therapy; Z88.6 Allergy status to analgesic agent; Z88.0 Allergy status to penicillin; Z91.048 Other nonmedicinal substance allergy status
CPT/HCPCS: 0241U; 36415; 71045; 80053; 83605; 83735; 83880; 84484; 85025; 85379; 85610; 93005; 93010; 94640; 96374; 96375; 96376; 99284; 99285-25; A9270-GY; J2919; J3490; J7620-GY

== ENCOUNTER 2025-08-28 03:13 | Emergency (ER) | payer MEDICARE, OTHER ==
[2025-08-28] MEDS ORDERED: Morphine Oral Concentrate 20 MG/ML 30 ML Bottle SL PRN (03:35)
[2025-08-28 04:00] VITALS: BP 106/48; PULSE 98
[2025-08-28 04:23] LABS: BASOPHILS ABSOLUTE AUTO 0.01 K/uL (0.00-0.20); BASOPHILS PERCENT AUTO 0.0 % (0.0-2.0); EOSINOPHILS ABSOLUTE AUTO 0.00 K/uL (0.00-0.50); EOSINOPHILS PERCENT AUTO 0.0 % (0.0-5.0); IMMATURE GRAN ABSOLUTE AUTO 0.09 10^3/uL (0.00-0.04); IMMATURE GRAN PERCENT AUTO 0.4 % (0.0-0.4); LYMPHOCYTES ABSOLUTE AUTO 0.68 K/uL (0.50-3.50); LYMPHOCYTES PERCENT AUTO 3.4 % (10.0-50.0); MONOCYTES ABSOLUTE AUTO 1.01 K/uL (0.00-1.00); MONOCYTES PERCENT AUTO 5.0 % (2.0-14.0); NEUTROPHILS ABSOLUTE AUTO 18.27 K/uL (1.40-7.00); NEUTROPHILS PERCENT AUTO 91.2 % (45.0-80.0); PLATELET COUNT,PLT 182 K/uL (150-350); RED BLOOD CELL COUNT 3.03 M/uL (3.77-5.09); RED CELL DISTRIBUTION WIDTH 12.5 % (11.2-14.1); WHITE BLOOD CELL COUNT,WBC 20.1 K/uL (4.0-10.2)
[2025-08-28 04:28] LABS: APPEARANCE,URINE CLOUDY; GLUCOSE,URINE NEGATIVE (NEGATIVE); OCCULT BLOOD,URINE TRACE-LYSED (NEGATIVE)
[2025-08-28 04:39] LABS: ALANINE AMINOTRANSFERASE,ALT 43 U/L (12-78); ASPARTATE AMNIOTRANSFERASE,AST 37 U/L (15-37); BILIRUBIN TOTAL 0.7 mg/dL (0.2-1.0); BLOOD UREA NITROGEN,BUN 16 mg/dL (7-18); CARBON DIOXIDE,CO2 36.9 mmol/L (21.0-32.0); CHLORIDE,CL 99 mmol/L (98-107); CREATININE 0.92 mg/dL (0.51-1.17); ESTIMATED GFR 63 mL/min (>=60); GLUCOSE RANDOM 178 mg/dL (70-99); POTASSIUM,K 4.7 mmol/L (3.5-5.1); PROTEIN TOTAL,TP 7.0 g/dL (6.4-8.2); SODIUM,NA 143 mmol/L (136-145)
== END 2025-08-28 04:30 | disposition hospice, home (50) ==
LOC: LL.ED 03:13
DX: R53.1 Weakness (principal); I11.0 Hypertensive heart disease with heart failure; I50.9 Heart failure, unspecified; Z51.5 Encounter for palliative care; Z88.0 Allergy status to penicillin; Z88.8 Allergy status to other drugs, medicaments and biological substances; Z79.899 Other long term (current) drug therapy; Z91.013 Allergy to seafood; W19.XXXA Unspecified fall, initial encounter
CPT/HCPCS: 36415; 80053; 81001; 85025; 99284